=== PATIENT | male | born 1970 | race Two or more races ===

== ENCOUNTER 2021-04-11 10:59 | Outpatient (REF) | payer OTHER, SELFPAY ==
[2021-04-11 13:40] LABS: MANUAL DIFF FLAG NO
[2021-04-11 13:50] LABS: Basophils Absolute Auto 0.1 X10*3/uL (0.0-0.2); Basophils Percent Auto 0.7 % (0-2); Eosinophils Absolute Auto 0.1 X10*3/uL (0.0-0.4); Eosinophils Percent Auto 1.1 % (0-4); Hematocrit 43.6 % (42-52); Hemoglobin 14.8 g/dl (14.0-18.0); Imm Gran Abs Auto 0.04 X10*3/uL (0.00-0.03); Imm Gran Pct Auto 0.5 % (0.0-0.4); Lymphocytes Absolute Auto 1.9 X10*3/uL (1.2-4.9); Lymphocytes Percent Auto 26.2 % (20-40); Mean Corpuscular HGB Conc 33.9 g/dl (31.0-36.0); Mean Corpuscular Hemoglobin 30.1 pg (27.0-33.0); Mean Corpuscular Volume 88.6 fL (80-98); Mean Platelet Volume 11.1 fL (9.4-12.4); Monocytes Absolute Auto 0.6 X10*3/uL (0.1-1.2); Monocytes Percent Auto 8.4 % (2-11); Neutrophils Absolute Auto 4.6 X10*3/uL (2.0-8.3); Neutrophils Percent Auto 63.1 % (45-73); Platelet Count 257 X10*3/uL (160-400); Red Blood Count 4.92 X10*6/uL (4.60-5.80); Red Cell Distribution Width 13.1 % (11.0-16.0); White Blood Count 7.3 X10*3/uL (4.8-10.8)
[2021-04-11 14:02] LABS: Alanine Aminotransferase 32 U/L (0-40); Albumin Level 4.5 g/dL (3.5-5.0); Alkaline Phosphatase 65 U/L (39-117); Anion Gap 12 (12-20); Aspartate Amino Transferase 22 U/L (5-37); Bilirubin Total 0.2 mg/dL (0.0-1.0); Blood Urea Nitrogen 13 mg/dL (9-16); Calcium 9.7 mg/dL (8.4-10.2); Carbon Dioxide 26 mmol/L (22-29); Chloride 107 mmol/L (96-108); Cholesterol 229 mg/dL; Estimated Glomerular Filt Rate > 60; Glucose Fasting 100 mg/dL (60-99); HDL Cholesterol 34 mg/dL; LDL Cholesterol Calculated 148 mg/dl; Sodium 140 mmol/L (135-145); Total Protein 7.4 g/dL (6.5-8.0); Triglycerides 238 mg/dL
== END 2021-04-11 11:00 | disposition home or self-care (01) ==
LOC: HO.10HDL 10:59
PROVIDERS: Visit Provider Internal Medicine
DX: Z00.00 Encounter for general adult medical examination without abnormal findings (principal); I10 Essential (primary) hypertension; M48.061 Spinal stenosis, lumbar region without neurogenic claudication; Z72.0 Tobacco use
CPT/HCPCS: 36415; 80053; 80061; 85025

== ENCOUNTER 2021-10-13 12:45 | Outpatient (REF) | payer BC, SELFPAY ==
[2021-10-13 13:47] LABS: Alanine Aminotransferase 32 U/L (0-40); Albumin Level 4.2 g/dL (3.5-5.0); Alkaline Phosphatase 57 U/L (39-117); Anion Gap 11 (12-20); Aspartate Amino Transferase 22 U/L (5-37); Bilirubin Total 0.4 mg/dL (0.0-1.0); Blood Urea Nitrogen 14 mg/dL (9-16); Calcium 9.8 mg/dL (8.4-10.2); Carbon Dioxide 27 mmol/L (22-29); Chloride 105 mmol/L (96-108); Cholesterol 196 mg/dL; Estimated Glomerular Filt Rate > 60; Glucose Random 118 mg/dL (60-115); HDL Cholesterol 27 mg/dL; Potassium 4.5 mmol/L (3.3-5.1); Sodium 138 mmol/L (135-145); Total Protein 7.2 g/dL (6.5-8.0); Triglycerides 470 mg/dL
== END 2021-10-13 12:46 | disposition home or self-care (01) ==
LOC: HO.LAB 12:45
PROVIDERS: PCP Internal Medicine; Visit Provider Internal Medicine
DX: E78.2 Mixed hyperlipidemia (principal); I10 Essential (primary) hypertension; M54.12 Radiculopathy, cervical region; Z72.0 Tobacco use
CPT/HCPCS: 36415; 80053; 80061

== ENCOUNTER 2022-11-14 11:00 | Day surgery (SDC) | payer BC, SELFPAY ==
--- NOTE | 2022-11-13 12:34 | P.CONAN_ITS ---
Documented by User: Danna Hernandez NP 11/13/22 12:37 HPI - Anesthesia Eval Consult details Narrative: 52yo M for Colonoscopy [facility] Past Medical History Medical History (Updated 11/13/22 @ 12:36 by Danna Hernandez NP) Cervical disc disease Hypertriglyceridemia Osteoarthritis Surgical History Surgical History (Updated 11/13/22 @ 12:36 by Danna Hernandez NP) H/O umbilical hernia repair (~2015) S/P cervical spinal fusion (~2021) S/P right knee arthroscopy (~2022) Social History Social History Patient Tobacco Use Status: Former Tobacco user Are you DNR?: No Advance Directives: No Advance Directives Information Provided: Yes Nutrition Risks: No Nutritional Risk Meds Allergies Allergy/AdvReac Type Severity Reaction Status Date / Time acetaminophen [From Percocet] Allergy Unknown Unknown Verified 11/13/22 12:36 oxycodone [From Percocet] Allergy Unknown Unknown Verified 11/13/22 12:36 Home Medications Medication Instructions Recorded Confirmed Last Taken Type fenofibrate nanocrystallized 145 145 mg PO DAILY 11/13/22 11/13/22 Unknown History mg tablet multivitamin 11/13/22 Unknown History rosuvastatin 20 mg tablet 20 mg PO BEDTIME 11/13/22 11/13/22 Unknown History Exam Exam Date and Time: November 13, 2022 1234 Assessment and Plan Assessment Anesthesia Assessment: Chart Reviewed Documented by User: Domenico Garcia MD 11/14/22 12:23 [facility] Past Medical History Medical History (Updated 11/13/22 @ 12:36 by Danna Hernandez NP) Cervical disc disease Hypertriglyceridemia Osteoarthritis Family History Family history of problems with anesthesia: No Surgical History Surgical History (Updated 11/13/22 @ 12:36 by Danna Hernandez NP) H/O umbilical hernia repair (~2015) S/P cervical spinal fusion (~2021) S/P right knee arthroscopy (~2022) History of Problems with Anesthesia: No Social History Social History Patient Tobacco Use Status: Former Tobacco user Are you DNR?: No Advance Directives: No Advance Directives Information Provided: Yes Nutrition Risks: No Nutritional Risk Meds Allergies Allergy/AdvReac Type Severity Reaction Status Date / Time acetaminophen [From Percocet] Allergy Unknown Unknown Verified 11/13/22 12:36 oxycodone [From Percocet] Allergy Unknown Unknown Verified 11/13/22 12:36 Home Medications Medication Instructions Recorded Confirmed Last Taken Type fenofibrate nanocrystallized 145 145 mg PO DAILY 11/13/22 11/13/22 Unknown History mg tablet multivitamin 11/13/22 Unknown History rosuvastatin 20 mg tablet 20 mg PO BEDTIME 11/13/22 11/13/22 Unknown History Exam Airway Mallampati Class: II TM Dist: >3cm Neck ROM: Full Heart: rrr Lungs: cta Assessment and Plan Assessment Anesthesia Assessment: Anesthesia Plan Discussed Final Anesthetic Review Family History of Problems with Anesthesia: No History of Problems with Anesthesia: No NPO: Yes ASA Class: II Final Preanesthetic Review: No Changes in Pt Med Stat, Meds/Allgs Chart Reviewed, Consent Obtained/Reviewed and Anes Risks/Benef Reviewed Patient Risk: Low Procedure Risk: Low Anesthetic Plan Anesthetic Plan: MAC: and Agree w/ Assess. and Plan Disposition: Standard PACU
[2022-11-14 11:37] VITALS: BMI 31.2
[2022-11-14] MEDS: Lactated Ringers 1,000 ML 100 ML IVCONT (11:39)
[2022-11-14 11:51] VITALS: BP 153/96; PULSE 91; RESP 18; TEMP 36.7; O2SAT 97
--- NOTE | 2022-11-14 12:54 | MHC.SHP ---
Pre-Procedural Eval Section A Date of Service: 11/14/22 The patient is an INPATIENT: No Changes since office visit: No Cold of Flu in the past 2 weeks, No New Medical Problems, No Changes in Medication and No Patient answered all questions The History & Physical has been completed within 30 days and I have reviewed it.: Yes Section B Chief Complaint: Hemorrhage of anus and rectum Allergies: Allergies Allergy/AdvReac Type Severity Reaction Status Date / Time acetaminophen [From Percocet] Allergy Unknown Unknown Verified 11/13/22 12:36 oxycodone [From Percocet] Allergy Unknown Unknown Verified 11/13/22 12:36 Plan I have reviewed the history and physical and performed a pertinent physical examination on my patient. No changes have occurred unless specified. Time Spent With Patient Time: Total time managing care of this patient today ____ minutes.
--- NOTE | 2022-11-14 13:33 | PM.OP ---
Brief Operative Note Date of Service: 11/14/22 Pre-op diagnosis: rectal bleeding constipation Post-op diagnosis: same Surgeon: Roberto Singh Anesthesia: MAC Was an Digital Account Director used for this Procedure?: No Estimated blood loss (mL): 5 Pathology: other Condition: stable Disposition: PACU
[2022-11-14 13:36] VITALS: BP 98/52; PULSE 94; RESP 16; TEMP 36.1; O2SAT 96
[2022-11-14 13:51] VITALS: BP 120/79; PULSE 82; RESP 16; TEMP 36.1; O2SAT 99
--- NOTE | 2022-11-14 14:00 | OP_ITS ---
DATE OF SERVICE: 11/14/2022 SURGEON: Roberto Singh MD INDICATIONS: Constipation and rectal bleeding. PREOPERATIVE DIAGNOSIS: POSTOPERATIVE DIAGNOSIS: PROCEDURE PERFORMED: Colonoscopy to the terminal ileum with biopsy. ESTIMATED BLOOD LOSS: COMPLICATIONS: ANESTHESIA: Monitored anesthesia care. ASSISTANTS: SPECIMENS: DESCRIPTION OF PROCEDURE: A history and physical was performed. The risks and benefits of the procedure were explained to the patient. Informed consent was obtained. The patient was placed in the left lateral decubitus position. A digital rectal exam was performed and was found to be normal. The Olympus pediatric video colonoscope was introduced in the rectum and advanced to the cecum without difficulty. The cecum was identified by transillumination, palpation, and identification of ileocecal valve. Examination was performed. The scope was removed. He tolerated the procedure well and was returned to the recovery area in stable condition. FINDINGS: The terminal ileum was examined and appeared normal. The visualized colonic mucosa was normal. The quality of the prep was good. The polyp in the cecum measuring less than 5 mm was removed with a biopsy forceps. There was some mild nonspecific erythema in the rectum, possibly related to the prep. Biopsies were obtained to rule out proctitis. Retroflexed examination showed some small internal hemorrhoids. IMPRESSION: Colon polyp. RECOMMENDATION: Follow up the biopsy results. MD STEPHANIE Price/LILLIANA / [phone]
== END 2022-11-14 15:07 | disposition home or self-care (01) ==
PROVIDERS: PCP Internal Medicine; Visit Provider Internal Medicine Gastroenterology
PROC: 0DJD8ZZ Inspection of Lower Intestinal Tract, Via Natural or Artificial Opening Endoscopic (ICD-10-PCS; CPT 45378; principal; 2022-11-14 12:20)
DX: K62.5 Hemorrhage of anus and rectum (principal); K59.00 Constipation, unspecified; K63.5 Polyp of colon; K64.8 Other hemorrhoids; E78.1 Pure hyperglyceridemia; M17.11 Unilateral primary osteoarthritis, right knee; M54.12 Radiculopathy, cervical region; Z79.899 Other long term (current) drug therapy; Z88.8 Allergy status to other drugs, medicaments and biological substances; Z98.890 Other specified postprocedural states; Z87.891 Personal history of nicotine dependence
CPT/HCPCS: 45380; 88305

== ENCOUNTER 2023-02-14 07:14 | Outpatient (REF) | payer BC, SELFPAY ==
[2023-02-14 07:25] LABS: MANUAL DIFF FLAG NO
[2023-02-14 08:22] LABS: Basophils Percent Auto 0.4 % (0-2); Eosinophils Absolute Auto 0.1 X10*3/uL (0.0-0.4); Eosinophils Percent Auto 1.2 % (0-4); Hematocrit 42.4 % (42.0-52.0); Hemoglobin 13.8 g/dl (14.0-18.0); Imm Gran Abs Auto 0.02 X10*3/uL (0.00-0.03); Imm Gran Pct Auto 0.3 % (0.0-0.4); Lymphocytes Absolute Auto 2.4 X10*3/uL (1.2-4.9); Lymphocytes Percent Auto 32.7 % (20-40); Mean Corpuscular HGB Conc 32.5 g/dl (31.0-36.0); Mean Corpuscular Hemoglobin 29.2 pg (27.0-33.0); Mean Corpuscular Volume 89.6 fL (80.0-98.0); Mean Platelet Volume 11.1 fL (9.4-12.4); Monocytes Absolute Auto 0.6 X10*3/uL (0.1-1.2); Neutrophils Absolute Auto 4.3 x10*3/uL (2.0-8.3); Neutrophils Percent Auto 57.4 % (45-73); Platelet Count 294 X10*3/uL (160-400); Red Blood Count 4.73 X10*6/uL (4.60-5.80); Red Cell Distribution Width 12.5 % (11.0-16.0); White Blood Count 7.4 X10*3/uL (4.8-10.8)
[2023-02-14 09:03] LABS: Alanine Aminotransferase 18 U/L (0-40); Albumin Level 4.5 g/dL (3.5-5.0); Alkaline Phosphatase 36 U/L (39-117); Anion Gap 10 (12-20); Aspartate Amino Transferase 17 U/L (5-37); Bilirubin Total 0.4 mg/dL (0.0-1.0); Blood Urea Nitrogen 24 mg/dL (9-16); Carbon Dioxide 29 mmol/L (22-29); Chloride 107 mmol/L (96-108); Cholesterol 126 mg/dL (<200); Estimated Glomerular Filt Rate 52; Glucose Random 87 mg/dL (60-115); HDL Cholesterol 42 mg/dL (>40); LDL Cholesterol Calculated 72 mg/dL (<100); Potassium 4.1 mmol/L (3.3-5.1); Sodium 142 mmol/L (135-145); Total Protein 7.8 g/dL (6.5-8.0); Triglycerides 63 mg/dL (<150)
[2023-02-14 09:20] LABS: Prostate Specific Antigen 0.58 ng/mL (<0.05-4.0)
[2023-02-14 09:21] LABS: Thyroid Stimulating Hormone 1.34 uIU/mL (0.32-4.0)
== END 2023-02-14 07:15 | disposition home or self-care (01) ==
LOC: HO.LAB 07:14
PROVIDERS: PCP Internal Medicine; Visit Provider Internal Medicine
DX: Z12.5 Encounter for screening for malignant neoplasm of prostate (principal); E78.2 Mixed hyperlipidemia; R73.01 Impaired fasting glucose; F17.201 Nicotine dependence, unspecified, in remission
CPT/HCPCS: 36415; 80053; 80061; 84153; 84443; 85025

== ENCOUNTER 2023-05-21 10:45 | Outpatient (AMB) | payer BC, SELFPAY ==
--- NOTE | 2023-05-21 10:53 | MHC.OFFVIS ---
Intake Vital Signs 05/21/23 10:57 Height 6 ft Weight 196 lb 3.382 oz BMI 26.6 BP 112/78 Blood Pressure Location Lt brachial Position Sitting Pulse 82 Intake Visit Reasons: NPV/Chest Pain/Adlakha Intake Note: NPV w/ EKG Watch Caser Required: No Accompanied by: Self / Same As Patient Allergies acetaminophen [From Percocet] Allergy (Unknown, Verified 05/21/23 11:01) Unknown oxycodone [From Percocet] Allergy (Unknown, Verified 05/21/23 11:01) Unknown Medication List - Last Reconciled 05/21/23 by Fadi Erickson MD [multivitamin ] rosuvastatin 20 mg PO BEDTIME terbinafine HCl 250 mg PO DAILY HPI HPI Comments History of Present Illness Details Abhi is here for consultation regarding chest pain. No known cardiac issues. No history of any coronary artery disease or myocardial infarction or cardiomyopathy. He states that he randomly gets chest pain on the left side. This can happen any time. Not specifically exertional but on occasions, it has also happened after doing pushups extra. However, not after walking. He does not do much of stairs due to musculoskeletal issues. It seems he was seen at the ER at [facility] but troponin was unremarkable. Otherwise, history of smoking but not in the last few months. Also, he states his blood pressure was high when he was smoking but after he stopped smoking, blood pressure came back to normal. One of his cousins had heart attack at age of 50. Other family members on father's side have had cardiac issues. Hence he is concerned. [facility] Medical History (Updated 05/21/23 @ 11:11 by Fadi Erickson MD) Osteoarthritis Cervical disc disease Hypertriglyceridemia Surgical History S/P right knee arthroscopy (~2022) S/P cervical spinal fusion (~2021) H/O umbilical hernia repair (~2015) Family History (Updated 05/21/23 @ 11:03 by Reva Veronica) Father No problems noted. Mother No problems noted. Patient Tobacco Use Status: Former Tobacco user Review of Systems Const Denies weakness ENT Denies dizziness Card Denies chest pain, Denies chest pain with activity, Denies syncope, Denies rapid heart rate, Denies pedal edema, Denies edema, Denies leg edema, Denies lightheadedness, Denies palpitations, Denies dyspnea, Denies dyspnea on exertion and Denies orthopnea Resp Denies cough, Denies dyspnea and Denies dyspnea on exertion GI Denies hematochezia and Denies change in stool character Musc Denies abnormal gait, Denies muscle cramps, Denies muscle weakness, Denies numbness, Denies radiating pain into limb and Denies tingling Neuro Denies abnormal gait, Denies dizziness, Denies syncope, Denies numbness, Denies tingling and Denies weakness Endo Denies palpitations Physical Exam Vital Signs: Last Vital Signs Pulse 82 05/21/23 10:57 BP 112/78 05/21/23 10:57 BMI result Body Mass Index 26.6 Const General: comfortable and no acute distress Orientation/consciousness: patient oriented x3 HEENT Other: Unremarkable Head: Yes normal to inspection Neck Neck: Yes normal visual inspection Chest Chest palpation & inspection: normal inspection of the chest Resp Auscultation: clear to auscultation bilaterally Cardio Palpation: normal PMI Heart sounds: S1 normal heart sound present, S2 normal heart sound present, no gallops, no murmurs and no rubs GI Palpation (GI): Soft to palpation Back/Spine/Pelvis Other: unremarkable Skin General skin exam: no rashes or lesions noted Neuro General: patient oriented x3 Extrem General: Yes normal to inspection Psych Mental Status: mental status grossly normal Office Procedures EKG Details: EKG with sinus rhythm at 82/Min; no significant ST-T changes and otherwise unremarkable. [place] [id number], Complete Assessment & Plan Assessment & Plan (1) Precordial chest pain: Code(s): R07.2 - Precordial pain Plan Chest pain with prior smoking history, chronic kidney disease. Will proceed with further workup for ischemic heart disease with echocardiogram and stress test. Further plan based on findings. Orders: Orders CA echo transthoracic complete Today I25.10 - Atherosclerotic heart disease of [place] coronary artery without angina pectoris, R07.2 - Precordial pain CA echo stress exercise Today R07.2 - Precordial pain Coding Level of Care Code New Pt Level 4 (93718) Diagnoses Precordial chest pain R07.2 CPT Codes EKG - CPT: 39852-[id number], Complete ([id number])
[2023-05-21 10:57] VITALS: BP 112/78; PULSE 82; BMI 26.6
== END 2023-05-21 11:20 | disposition home or self-care (01) ==
PROVIDERS: PCP Internal Medicine; Visit Provider Internal Medicine
DX: R07.2 Precordial pain (principal)
CPT/HCPCS: 93010; 99204

== ENCOUNTER → 2023-05-21 10:45 | Outpatient (BNVA) | payer BC, SELFPAY | PROVIDERS: PCP Internal Medicine; Visit Provider Internal Medicine | DX: R07.2 Precordial pain (principal) | CPT/HCPCS: 93005 ==

== ENCOUNTER → 2023-06-20 13:49 | Outpatient (REF) | payer BC, SELFPAY ==
--- NOTE | 2023-06-20 13:57 | CA_ITS ---
Transthoracic Echocardiogram Patient (Last, First, Middle): Abhi Dickinson, Gender: Male Date of : 1970 Age: 53 Procedure Date: 06/20/2023 Procedure Type: Transthoracic Echocardiogram Location: OP Height: 182.88 cm Weight: 88.91 kg BSA: 2.11 m2 Heart Rate: 79 bpm BP: 112 / 78 mmHg Commercial Teller: SB Referring MD: Fadi Erickson MD Symptoms: I25.10 - Atherosclerotic heart disease of [place] coronary artery without... Study Quality: Adequate w contrast ECG Rhythm: Sinus Conclusions: - The left ventricular systolic function is normal. The calculated ejection fraction is 60% by biplane method. - No obvious valvular pathology seen on this study. Findings Procedure Information Contrast agent, definity, is being given per protocol without apparent complications. Left Ventricle Normal left ventricular cavity size. There is normal left ventricular wall thickness. The left ventricular systolic function is normal. The calculated ejection fraction is 60% by biplane method. There is no evidence of regional wall motion abnormalities. Diastolic function is normal for age. Right Ventricle Mildly increased right ventricular cavity size. There is normal right ventricular systolic function. Atria Both atria are normal in size. Aortic Valve There is a normal trileaflet aortic valve. There is no aortic valve stenosis. There is no aortic valve regurgitation. Mitral Valve The mitral valve appears normal. There is no mitral valve regurgitation. There is no mitral valve stenosis. Pulmonic Valve The pulmonic valve is likely normal. Tricuspid Valve Normal tricuspid valve structure. There is trace tricuspid valve regurgitation. There is no evidence of pulmonary hypertension. Great Vessels The asc aorta is normal in size. Venous The inferior vena cava is normal in size and collapses greater than 50% with inspiration. Pericardium/Pleural There is no evidence of pericardial effusion. Prior Study Comparison No prior study available for comparison. Recommendations, Care & Conclusions No obvious valvular pathology seen on this study. Measurements 2D Linear Measurements IVSd: 0.83 0.6-0.9/0.6-1.0 cm LVIDd: 4.87 3.9-5.3/4.2-5.9 cm LVIDd Index: 2.31 2.4-3.2/2.2-3.1 cm/m2 LVIDs: 3.43 2.0-3.6 cm LVPWd: 0.66 0.7-1.1 cm LA Diam: 3.40 2.7-3.8/3.0-4.0 cm LAIDs Index: 1.61 1.5-2.3 cm/m2 LV Mass: 147.30 67-162/88-224 g LV Mass Index: 69.81 43-95/49-115 g/m2 LVOT Diam: 2.20 3.0+(-)1.3 cm 2D Systolic Function EF 4C: 52.80 >55% EF 2C: 64.30 >55% EF BiP: 59.80 >55% Mitral Valve MV Pk E: 0.71 MV PK A: 0.52 MV Decel Time: 151.00 E/A: 1.40 E'Lateral: 14.60 E'Medial: 9.46 E/E' Med: 7.50 E/E' Lat: 4.90 PHT: 44.00 MVA PHT: 5.00 Decel Limestone: 4.70 Aortic Valve AoV Pk Diony: 1.18 AoV Pk Grad: 6.00 TRUDY: 2.71 LVOT LVOT Pk Diony: 0.84 LVOT Mn Diony: 0.61 LVOT VTI: 0.18 LVOT Pk Grad: 3.00 LVOT Mn Grad: 2.00 LVOT Diam: 2.20 LVOT Area: 3.80 Diastolic Function MV Pk E: 0.71 MV Pk A: 0.52 E/A: 1.40 E'Medial: 9.46 E/E' Med: 7.50 E' Laterial: 14.60 E/E' Lat: 4.90 Right Ventricle TAPSE (mm): 19.30 TVS' Diony: 14.00 Tricuspid Valve TR Pk Diony: 2.04 TR Pk Grad: 17.00 RA Press: 3.00 RVSP: 20.00 Great Vessels Aorta Sinus of Valsalva: 3.90 2.0-3.5 cm Ao Asc: 3.20 2.1-3.4 cm Pulmonary Veins Pulm Vein S/D 1.40 Pulmonary Valve PV Pk Diony: 1.16 Peak PV Grad: 5.00 Updated in Other Vendor System with Status of Final Fadi Erickson MD electronically signed on 06/22/2023 11:27:22 AM with status of Final
== END ==
LOC: HO.CARD 13:49
PROVIDERS: PCP Internal Medicine; Visit Provider Internal Medicine
DX: R07.2 Precordial pain (principal); I25.10 Atherosclerotic heart disease of native coronary artery without angina pectoris
CPT/HCPCS: 93306; Q9957

== ENCOUNTER → 2023-06-20 13:57 | Outpatient (BNV) | payer BC, SELFPAY | PROVIDERS: PCP Internal Medicine; Visit Provider Internal Medicine | DX: I25.10 Atherosclerotic heart disease of native coronary artery without angina pectoris (principal) | CPT/HCPCS: 93306 ==

== ENCOUNTER → 2023-06-26 10:57 | Outpatient (REF) | payer BC, SELFPAY ==
--- NOTE | 2023-06-26 11:00 | CA_ITS ---
Acquisition Time: 2023-06-26 11:29:23 Total Exercise Time: 00:08:01 Test Indications: chest pain Medications: Protocol: JOSEE Max HR: 173 BPM 102% of Pred: 168 BPM Max BP: 128/080 mmHG Max Work Load: 10.1 METS Exercise stress test exercise 8 min 1 sec of Josee protocol achieving 101% MPHR, without anginal symptoms, with isolated PVCs, with normotensive response to exercise, without EKG changes Echo images obtained by tech at rest and immediately post peak exercise. Definty contrast used. Test reviewed with Dr. Fox. Referred By: Fadi Erickson Overread By: Holly Markham
== END ==
LOC: HO.CARD 10:57
PROVIDERS: PCP Internal Medicine; Visit Provider Internal Medicine
DX: R07.2 Precordial pain (principal)
CPT/HCPCS: 93350; Q9957

== ENCOUNTER → 2023-06-26 11:00 | Outpatient (BNV) | payer BC, SELFPAY | PROVIDERS: PCP Internal Medicine; Visit Provider Nurse Practitioner | DX: R07.2 Precordial pain (principal) | CPT/HCPCS: 93016; 93018; 93350; 93352 ==

== ENCOUNTER 2023-08-22 07:18 | Outpatient (REF) | payer BC, SELFPAY ==
[2023-08-22 08:02] LABS: Alanine Aminotransferase 23 U/L (0-40); Albumin Level 4.2 g/dL (3.5-5.0); Alkaline Phosphatase 53 U/L (39-117); Anion Gap 11 (12-20); Aspartate Amino Transferase 22 U/L (5-37); Bilirubin Total 0.5 mg/dL (0.0-1.0); Blood Urea Nitrogen 13 mg/dL (9-16); Calcium 9.8 mg/dL (8.4-10.2); Carbon Dioxide 28 mmol/L (22-29); Chloride 108 mmol/L (96-108); Cholesterol 120 mg/dL (<200); Estimated Glomerular Filt Rate > 60; Glucose Random 104 mg/dL (60-115); HDL Cholesterol 43 mg/dL (>40); LDL Cholesterol Calculated 62 mg/dL (<100); Potassium 4.7 mmol/L (3.3-5.1); Sodium 142 mmol/L (135-145); Total Protein 7.1 g/dL (6.5-8.0); Triglycerides 78 mg/dL (<150)
== END 2023-08-22 07:19 | disposition home or self-care (01) ==
LOC: HO.LAB 07:18
PROVIDERS: PCP Internal Medicine; Visit Provider Internal Medicine
DX: Z00.00 Encounter for general adult medical examination without abnormal findings (principal); B35.1 Tinea unguium; E78.2 Mixed hyperlipidemia; I10 Essential (primary) hypertension; F17.201 Nicotine dependence, unspecified, in remission
CPT/HCPCS: 36415; 80053; 80061

== ENCOUNTER 2023-11-30 10:10 | Outpatient (REF) | payer BC, SELFPAY ==
--- NOTE | ~2023-11-30 | CT_ITS ---
EXAMINATION: CT LOW-DOSE SCREENING CHEST WITHOUT CONTRAST CLINICAL INFORMATION: Personal history of nicotine dependence. The patient has a 25 pack-year history of smoking, having quit 1 year ago. COMPARISON: None available. TECHNIQUE: Multidetector volumetric CT imaging of the chest is performed on a Siemens SOMATOM Definition scanner without contrast using low dose technique. Additional 2D coronal and sagittal reformatted images and axial 3D maximum intensity projection (MIP) images are generated on the CT workstation. This CT examination was performed using dose optimization techniques as appropriate, variously including the following: *Automated exposure control *Adjustment of mA and/or kV according to patient size (this includes techniques or standardized protocols for targeted exams where dose is matched to indication/reason for exam; i.e. extremities or head) *Use of iterative reconstruction technique TOTAL EXAM DLP: 57 mGy-cm. CTDIvol: 1.78 mGy. FINDINGS: PULMONARY NODULES: No suspicious pulmonary nodules. LUNGS: Lungs bilaterally symmetrically expanded. There is mild emphysema and mild bronchial thickening without bronchiectasis. Some minimal scarring present at the right lung base. No focal lung nodule or mass. No effusion or pneumothorax. Central airways patent. MEDIASTINUM: No mediastinal, hilar or axillary adenopathy or free fluid collection. CORONARY ARTERY CALCIFICATION: None visualized on this study. THYROID GLAND: Unremarkable to the extent seen. CARDIOVASCULAR STRUCTURES: Aortic and heart size normal. No pericardial effusion. There is an aberrant right subclavian artery. CHEST WALL/AXILLA: Unremarkable. UPPER ABDOMEN: Included portions of the solid organs in the upper abdomen unremarkable on noncontrast imaging. OSSEOUS STRUCTURES: No suspicious focal findings. CT/CT lung screening IMPRESSION: 1. No evidence of pulmonary malignancy. 2. Mild emphysema and bronchial thickening. Lung-RADS Category Category: 1. No nodules or definitely benign nodules. Probability of malignancy less than 1%. Incidental findings (s category): No incidental findings. RECOMMENDATION: Continued routine annual low-dose CT lung screening in 1 year is recommended. An order for CT CHEST LOW DOSE CANCER SCREENING ([id number]) can be placed.
== END 2023-11-30 10:11 | disposition home or self-care (01) ==
LOC: HO.CT 10:10
PROVIDERS: PCP Internal Medicine; Visit Provider Physician Assistant Medical
DX: Z12.2 Encounter for screening for malignant neoplasm of respiratory organs (principal); Z87.891 Personal history of nicotine dependence
CPT/HCPCS: 71271

== ENCOUNTER 2023-11-30 10:14 | Outpatient (AMB) | payer BC, SELFPAY ==
--- NOTE | 2023-11-30 07:47 | A.OFFVIS_ITS ---
Intake Visit Reasons: Former Smoker Allergies acetaminophen [From Percocet] Allergy (Unknown, Verified 05/21/23 11:01) Unknown oxycodone [From Percocet] Allergy (Unknown, Verified 05/21/23 11:01) Unknown HPI HPI Former Smoker: Details: Initial visit for this 53yo former smoker with a 20PYH. Patient started smoking at age 17 for 35 years at 1/2-3/4ppd. He quit around 07/2022 . Denies marijuana use. Notes social second hand smoke exposure. Denies exposure to chemicals or substances like asbestos. . Denies known family history of lung cancer. Denies personal history of cancers. Denies chest CT in last year. . Denies recent travel outside the [place]. Denies recent respiratory illness or recent hospitalization for respiratory issues. Reports testing positive for COVID. Admits receiving COVID Vaccine. x1. . Has had chest wall pain - worked up with negative cardiac work up. Denies fever, chills, new/worsening cough, hemoptysis, hoarseness or dysphagia. Denies significant dyspnea or unintentional weight loss. Patient Lung Cancer Screening Questionnaire reviewed with patient by provider. . Shared Decision Making Completed. Patient meets criteria. Discussed in detail with patient, the risk vs benefit of LDCT screening. Patient consents to proceed with scan. Discussed and encouraged conrtinued smoking cessation. COUNT INCLUDES THE [facility] Medical History (Updated 11/30/23 @ 10:34 by Ann Gay PA-C) Personal history of nicotine dependence Osteoarthritis Cervical disc disease Hypertriglyceridemia Surgical History (Updated 11/30/23 @ 10:25 by Ann Gay PA-C) History of colonoscopy History of arthroscopy of right knee (~2022) History of umbilical hernia repair (~2015) History of fusion of cervical spine (~2021) Family History (Updated 05/21/23 @ 11:03 by Reva Veronica) Father No problems noted. Mother No problems noted. Social History (Updated 11/30/23 @ 10:34 by Ann Gay PA-C) Patient Tobacco Use Status: Former Tobacco user Years Smoked: (onset 17yo, 1/2-3/4ppd x 35yrs, 20pyh - quit 07/2022) Assessment & Plan Assessment & Plan (1) Personal history of nicotine dependence: Comment: (onset 17yo, 1/2-3/4ppd x 35yrs, 20pyh - quit 07/2022) Code(s): Z87.891 - Personal history of nicotine dependence Category: Medical Plan: - SDM visit completed today in office. - Patient meets criteria for LDCT for lung cancer screening purposes and is asymptomatic. - Smoking cessation counseling offered. Patients can always call [phone]. - Will arrange for a LDCT scan of the chest for screening purposes at [facility]. - Risks, benefits, and alternatives were discussed in detail and the patient agrees to proceed. - Risks discussed include but are not limited to: radiation exposure, anxiety during testing and while awaiting results, false negatives, false positives and possibility of additional intervention such as further imaging or surgical procedures for benign disease. - Benefits are obviously detection of lung cancer at an early stage which can lead to improved outcomes. - Discussed the importance of screening program compliance with adherence to yearly LDCT scan as scheduled - or sooner interval scans for personalized screening regimen. - Discussed follow up plan. Our office will send a letter discussing results and if needed set up phone call and office visit based on CT findings. - Patient educated on results categorization and the management decisions for suspicious findings potentially found on the screening LDCT scan. Any patient with a Lung RADS score of 3 or 4 will be reviewed by a multidisciplinary team at [facility] to form a plan of action in regards to scan findings. - If further work up is warranted for a suspicious lung finding this will be followed by the Lung Cancer Screening program in conjunction with the Thoracic Surgery Department at [facility]. - A copy of the office note and LDCT will be sent to the patient's PCP - as well as documentation on any associated further plans of care. - Incidental findings on LDCT are the PCP's responsibility. These findings are indicated with an S finding on the LDCT Assessment. A note discussing the findings will be sent to the PCP who is then responsible for further management. - All questions answered.? Coding Level of Care Code Lung Cancer Screening G0296 Diagnoses Personal history of nicotine dependence Z87.891
== END 2023-11-30 10:48 | disposition home or self-care (01) ==
PROVIDERS: PCP Internal Medicine; Referring Provider Internal Medicine; Visit Provider Physician Assistant Medical
DX: Z87.891 Personal history of nicotine dependence (principal)
CPT/HCPCS: G0296

== ENCOUNTER 2024-02-01 08:04 | Outpatient (REF) | payer BC, SELFPAY ==
[2024-02-01 08:11] LABS: MANUAL DIFF FLAG NO
[2024-02-01 08:42] LABS: Basophils Percent Auto 0.6 % (0-2); Eosinophils Absolute Auto 0.1 X10*3/uL (0.0-0.4); Eosinophils Percent Auto 1.6 % (0-4); Hemoglobin 14.4 g/dl (14.0-18.0); Imm Gran Abs Auto 0.01 X10*3/uL (0.00-0.03); Imm Gran Pct Auto 0.2 % (0.0-0.4); Lymphocytes Absolute Auto 1.6 X10*3/uL (1.2-4.9); Lymphocytes Percent Auto 33.3 % (20-40); Mean Corpuscular HGB Conc 34.3 g/dl (31.0-36.0); Mean Corpuscular Hemoglobin 30.6 pg (27.0-33.0); Mean Corpuscular Volume 89.2 fL (80.0-98.0); Mean Platelet Volume 10.6 fL (9.4-12.4); Monocytes Absolute Auto 0.5 X10*3/uL (0.1-1.2); Monocytes Percent Auto 9.6 % (2-11); Neutrophils Absolute Auto 2.7 x10*3/uL (2.0-8.3); Neutrophils Percent Auto 54.7 % (45-73); Platelet Count 222 X10*3/uL (160-400); Red Blood Count 4.71 X10*6/uL (4.60-5.80); Red Cell Distribution Width 12.8 % (11.0-16.0); White Blood Count 4.9 X10*3/uL (4.8-10.8)
[2024-02-01 09:19] LABS: Alanine Aminotransferase 27 U/L (0-40); Albumin Level 4.2 g/dL (3.5-5.0); Alkaline Phosphatase 48 U/L (39-117); Anion Gap 9 (12-20); Aspartate Amino Transferase 24 U/L (5-37); Bilirubin Total 0.3 mg/dL (0.0-1.0); Blood Urea Nitrogen 19 mg/dL (9-16); Calcium 9.5 mg/dL (8.4-10.2); Carbon Dioxide 30 mmol/L (22-29); Chloride 109 mmol/L (96-108); Cholesterol 170 mg/dL (<200); Estimated Glomerular Filt Rate > 60; Glucose Random 98 mg/dL (60-115); HDL Cholesterol 49 mg/dL (>40); LDL Cholesterol Calculated 102 mg/dL (<100); Potassium 4.5 mmol/L (3.3-5.1); Sodium 143 mmol/L (135-145); Triglycerides 98 mg/dL (<150)
== END 2024-02-01 08:05 | disposition home or self-care (01) ==
LOC: HO.LAB 08:04
PROVIDERS: PCP Internal Medicine; Visit Provider Internal Medicine
DX: E78.2 Mixed hyperlipidemia (principal); F17.291 Nicotine dependence, other tobacco product, in remission; F33.41 Major depressive disorder, recurrent, in partial remission; N40.0 Benign prostatic hyperplasia without lower urinary tract symptoms; R07.89 Other chest pain; Z12.5 Encounter for screening for malignant neoplasm of prostate
CPT/HCPCS: 36415; 80053; 80061; 84153; 85025

== ENCOUNTER 2024-11-12 09:28 | Outpatient (REF) | payer OTHER, BC, SELFPAY ==
--- NOTE | ~2024-11-12 | XR_ITS ---
EXAMINATION: XR KNEE 3 VIEWS RIGHT HISTORY: M25.561 - Pain in right knee COMPARISON: There are no prior studies available for comparison. FINDINGS: Three views of the right knee are submitted. Osseous mineralization is normal. There is no fracture or dislocation. The joint spaces are preserved. The soft tissues are unremarkable. There is no joint effusion. XR/XR knee RT 3V IMPRESSION: Unremarkable examination of the right knee. Electronically signed by: Ronald Villegas MD 11/12/2024 03:12 PM EDT
--- OUTSIDE RECORDS SUMMARY | 2024-11-13 09:44 | XMS_ITS | Patient Health Record ---
Author Organization [facility] Address [address] [place] [address] Care Team Providers Care Meter And Regulator Shop Supervisor Name Role Phone Doranereida Rachel Primary Care [...] Problem Status W/U Status Risk Notes Problem [id number] Rectal bleeding (K62.5) Active confirmed Problem 44525041 Constipation, unspecified constipation type (K59.00) Active confirmed Plan Of Treatment Future Test Test Name Order Date COLONOSCOPY 10/26/2022 Insurance Providers Payer Name Payer Address Payer Phone Subscriber Number Group Number Insured Name Patient Relationship to Insured Coverage Start Date Coverage End Date [facility] [address] [place] [address] [phone] [id number] BO BIGGS Self - patient is the insured Medical (General) History Medical History History ICD Code Hypertriglyceridemia Radiculopathy/disc disease, cervical Osteoarthritis Surgical History Surgery Date(Month/Year) Umbilical hernia repair [id number] C5-6 neck fusion 2021 arthoscopy right knee 2022
--- OUTSIDE RECORDS SUMMARY | 2024-11-13 09:44 | XMS_ITS | Clinical Summary ---
Author Organization [facility] ity Address [address] [place] [address] Care Team Providers Care Compensation Manager Name Role Phone Rachel Stephens MD Primary Care Provider [phone] Surgical History Surgery Date Site/Laterality Comments OTHER SURGICAL HISTORY PROCEDURE: DENIES PREVIOUS SURGERY HERNIA REPAIR 2016 PROCEDURE: HISTORICAL HERNIA REPAIR/UMB OTHER SURGICAL HISTORY 12/30/2021 PROCEDURE: [place] ARTHRD ANT INTERBODY MIN DSC CRV BELOW C2; COMMENT: C5-6,6-7 ACDF, Dr. Montez Medical History Medical History Date Comments Hypertriglyceridemia 08/05/2014 DX:Hypertri glyceridemia Family History Medical History Relation Name Comments Hypertension Father [place] 50s Diabetes Mother Heart attack Other 1 [...] age to complete this topic Care Teams Compensation Manager Relationship Specialty Start Date End Date Rachel Stephens MD [address] [facility] [address] [place], [place] PCP - General Internal Medicine 09/05/21
== END 2024-11-12 09:29 | disposition home or self-care (01) ==
LOC: HO.HOSX 09:28
PROVIDERS: Visit Provider Orthopaedic Surgery
DX: M25.561 Pain in right knee (principal)
CPT/HCPCS: 73562; 99202

== ENCOUNTER 2024-11-12 14:45 | Outpatient (AMB) | payer OTHER, SELFPAY ==
--- OUTSIDE RECORDS SUMMARY | 2024-11-12 14:53 | XMS_ITS | Clinical Summary ---
Author Organization [employer] [facility] ity Address [address] [place] [address] Care Team Providers Care Joiner Helper Name Role Phone Rachel Setphens MD Primary Care Provider [phone] Surgical History Surgery Date Site/Laterality Comments OTHER SURGICAL HISTORY PROCEDURE: DENIES PREVIOUS SURGERY HERNIA REPAIR 2016 PROCEDURE: HISTORICAL HERNIA REPAIR/UMB OTHER SURGICAL HISTORY 12/30/2021 PROCEDURE: [place] ARTHRD ANT INTERBODY MIN DSC CRV BELOW C2; COMMENT: C5-6,6-7 ACDF, Dr. Montez Medical History Medical History Date Comments Hypertriglyceridemia 08/05/2014 DX:Hypertri glyceridemia Family History Medical History Relation Name Comments Hypertension Father [place] 50s Diabetes Mother Heart attack Other 1 cousin age 50 Relation Name Status Comments Father Alive [place] age 50's Mother Alive Other 1 Other 2 Social History Tobacco Use Types Packs/Day Years Used Date Smoking Tobacco: Every Day Cigarettes 1 37.6 Started: 1987 Smokeless Tobacco: Never Alcohol Use Standard Drinks/Week Comments Yes 6.7 (1 standard drink = 0.6 oz p ure alcohol) Sex and Gender Information Value Date Recorded Sex Assigned at Not on file Legal Sex Male 5:20 AM EST Gender Identity Not on file Sexual Orientation Not on file Obstetrics History Last Filed Vital Signs Vital Sign Reading Time Taken Comments Blood Pressure - - Pulse - - Temperature - - Respiratory Rate - - Oxygen Saturation - - Inhaled Oxygen Concentration - - Weight 95.3 kg (210 lb) 01/20/2022 10:53 AM EDT Height 182.9 cm (6') 01/20/2022 10:53 AM EDT Body Mass Index 28.48 01/20/2022 10:53 AM EDT Plan of Treatment Health Maintenance Due Date Last Done Comments DTaP,Tdap,and Td Vaccines (1 - Tdap) 1990 Hepatitis B Vaccines (1 of 3 - 19+ 3-dose series) 1990 Pneumococcal Vaccine: 50+ Ye ars (1 of 2 - PCV) 1990 Pneumococcal Vaccine: Pediat rics (0 to 5 Years) and At-Risk Patients (6 to 64 Years) (1 of 2 - PCV) 1990 Zoster Vaccines (1 of 2) 2021 Cholesterol Screening (Lipid Panel) 05/28/2022 Colorectal Cancer Screening: Colonoscopy 05/28/2022 Depression Screening 05/28/2022 HIV Screening 05/28/2022 Hepatitis C Screening 05/28/2022 Social Influencers of Health Screening 05/28/2022 COVID-19 Vaccine ( - 2023-2 5 season) 2024 Influenza Vaccine (Season Ended) 2025 HIB Vaccines Aged Out No longer eligi ble based on patient's age to complete this topic HPV Vaccines Aged Out No longer eligi ble based on patient's age to complete this topic Hepatitis A Vaccines Aged Out No long er eligible based on patient's age to complete this topic IPV Vaccines Aged Out No longer eligi ble based on patient's age to complete this topic MMR Vaccines Aged Out No longer eligi ble based on patient's age to complete this topic Meningococcal ACWY Vaccine Aged Out N o longer eligible based on patient's age to complete this topic Meningococcal B Vaccine Aged Out No l onger eligible based on patient's age to complete this topic RSV Immunization Patients Un brian 20 months Aged Out No longer eligible b ased on patient's age to complete this topic Varicella Vaccines Aged Out No longer eligible based on patient's age to complete this topic Care Teams Joiner Helper Relationship Specialty Start Date End Date Rachel Stephens MD [address] [facility] [address] [place], [place] PCP - General Internal Medicine 09/05/21
--- OUTSIDE RECORDS SUMMARY | 2024-11-12 14:53 | XMS_ITS | Patient Health Record ---
Author Organization [facility] Address [address] [place] [address] Care Team Providers Care Principal Mechanical Engineer Name Role Phone Doranereida Rachel Primary Care Provider UnavailRoberto Rivero Jr Unavailable Allergies Allergen (clinical drug ingredient) Drug/Non Drug Allergy documented on EMR Reaction Allergy Type Onset Date Status acetaminophen / oxycodone Percocet Unknown Drug Allergy Active Reason For Referral No Information Medications Medication SIG (Take, Route, Frequency, Duration) Notes Start Date End Date Status MiraLax (colon prep) 17 GM/SCOOP mixed with Gatorade or Crystal Light Orally begin at 5:00 p.m. the day before the procedure for 1 day 10/26/2022 Active Rosuvastatin Calcium 20 MG Oral for 90 Active Multivitamin - 1 tablet Orally Once a day for 30 day(s) Active Fenofibrate 145 MG TAKE 1 TABLET BY ALBARO TH EVERY DAY Oral for 90 Active Social History Tobacco Use: Social History Observation Description Date Details (start date - stop date) Former Smoker NA - NA Tobacco Use/Smoking Question Answer Notes Patient is a former smoker How long has it been since you last smoked? 1-3 months Alcohol Screen Question Answer Notes Did you have a drink contain ing alcohol in the past year? Yes How often did you have a dri nk containing alcohol in the past year? 2 to 4 times a month (2 points) How many drinks did you have on a typical day when you were drinking in the past year? 1 or 2 drinks (0 point) How often did you have 6 or more drinks on one occasion in the past year? Never (0 point) Points 2 Interpretation Negative Problems Problem Type SNOMED Code ICD Code Onset Dates Problem Status W/U Status Risk Notes Problem 27865130 Rectal bleeding (K62.5) Active confirmed Problem 86168350 Constipation, unspecified constipation type (K59.00) Active confirmed Plan Of Treatment Future Test Test Name Order Date COLONOSCOPY 10/26/2022 Insurance Providers Payer Name Payer Address Payer Phone Subscriber Number Group Number Insured Name Patient Relationship to Insured Coverage Start Date Coverage End Date [facility] [address] [place] [address] [phone] [id number] BO BIGGS Self - patient is the insured Medical (General) History Medical History History ICD Code Hypertriglyceridemia Radiculopathy/disc disease, cervical Osteoarthritis Surgical History Surgery Date(Month/Year) Umbilical hernia repair [id number] C5-6 neck fusion 2021 arthoscopy right knee 2022
[2024-11-12 14:57] VITALS: BMI 28.1
--- NOTE | 2024-11-12 14:57 | A.OFFVIS_ITS ---
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 The patient describes his right knee pain as stabbing in nature. He did undergo right knee arthroscopic surgery at [facility] in 2022. He states that he gotten minimal relief from that procedure. He did go to physical therapy following the procedure which seemed to aggravate his pain. He has had both cortisone injections and viscosupplementation injections since his surgery. The viscosupplementation injections gave him no relief and the cortisone injection gave him only several weeks worth of relief. The patient states that at times his right knee will give out. He has taken Tylenol and diclofenac which gave him minimal relief. Allergies acetaminophen [From Percocet] Allergy (Unknown, Verified 11/12/24 15:14) Unknown oxycodone [From Percocet] Allergy (Unknown, Verified 11/12/24 15:14) Unknown Medication List - Last Reconciled 11/12/24 by Homero Moy MD [multivitamin ] rosuvastatin 20 mg PO BEDTIME terbinafine HCl 250 mg PO DAILY [facility] Medical History (Updated 11/12/24 @ 15:14 by Homero Moy MD) Personal history of nicotine dependence Osteoarthritis Cervical disc disease Hypertriglyceridemia Surgical History (Updated 11/30/23 @ 10:25 by Ann Gay PA-C) History of colonoscopy History of arthroscopy of right knee (~2022) History of umbilical hernia repair (~2015) History of fusion of cervical spine (~2021) Family History (Updated 05/21/23 @ 11:03 by Reva Veronica) Father No problems noted. Mother No problems noted. Social History (Updated 11/30/23 @ 10:34 by Ann Gay PA-C) Patient Tobacco Use Status: Former Tobacco user Years Smoked: (onset 17yo, 1/2-3/4ppd x 35yrs, 20pyh - quit 07/2022) Physical Exam Vital Signs: BMI result Body Mass Index 28.1 Const Other: Well-nourished well-developed very friendly male awake alert and oriented x3 in no acute distress Extrem Other: Bilateral lower extremity examination shows good capillary refill, no skin lesions noted, normal sensation light touch Right knee examination shows a minimal effusion, minimal crepitus with range of motion, tenderness along his medial joint line, positive Brooklynn's test, no instability Results Reviewed Results Reviewed: X-rays of the patient's right knee show mild diffuse joint space narrowing, no acute bony abnormalities Assessment & Plan Assessment & Plan (1) Tear of medial meniscus of right knee: Code(s): S83.241A - Other tear of medial meniscus, current injury, right knee, initial encounter Category: Medical Plan Mr. Dickinson presents with progressively worsening right knee pain and mechanical symptoms most likely due to a medial meniscus tear. Thus, I will send the patient for an MRI of his right knee for further evaluation. I will see him back once the MRI is completed to discuss the findings and treatment options. He will contact me prior to that time should any questions or concerns arise. Feel free to call me at any time should questions regarding his orthopedic management arise. I spent 20 minutes in reviewing the patient's records and imaging studies, seeing the patient and documenting in the medical record. Orders: Orders XR knee RT 3V Today M25.561 - Pain in right knee MR knee RT wo con Today S83.241A - Other tear of medial meniscus, current injury, right knee, initial encounter Coding Level of Care Code New Pt Level 3 (76597) Complex EM visit Add On G2211 Diagnoses Tear of medial meniscus of right knee S83.241A
== END 2024-11-12 15:13 | disposition home or self-care (01) ==
LOC: HO.HOS 14:45
PROVIDERS: PCP Internal Medicine; Visit Provider Orthopaedic Surgery
DX: S83.241A Other tear of medial meniscus, current injury, right knee, initial encounter (principal)
CPT/HCPCS: 99203

== ENCOUNTER → 2024-11-12 14:51 | Outpatient (BNV) | payer BC, SELFPAY | PROVIDERS: Visit Provider Radiology Diagnostic Radiology | DX: M25.561 Pain in right knee (principal) | CPT/HCPCS: 73562 ==

== ENCOUNTER 2024-11-14 14:27 | Outpatient (REF) | payer BC, SELFPAY ==
--- NOTE | ~2024-11-14 | US_ITS ---
EXAMINATION: US SCROTUM CLINICAL INFORMATION: Right testicular pain.. COMPARISON: None available. TECHNIQUE: A sonogram of the scrotum was performed assessing acuna-scale appearance and color Doppler flow. Spectral Doppler analysis of the arterial and venous flow were performed in the testes bilaterally. FINDINGS: RIGHT: Right testicle measures 4.1 x 1.8 x 2.8 cm, volume 10.8 mL. No solid or cystic lesion identified by the technologist. Spectral Doppler analysis of the arterial and venous flow is normal in the right testis. Right epididymal head is there is a 0.8 x 0.8 x 0.6 cm mixed isointense and slightly hyperechoic lesion without gross flow on Doppler interrogation. No free fluid in the scrotal sac. No prominence of the pampiniform plexus. Right epididymal Doppler flow is normal. LEFT: Left testicle measures 3.8 x 1.8 x 3.0 cm, volume 10.7 mL. No solid or cystic mass demonstrated by the technologist Spectral Doppler analysis of the arterial and venous flow is normal in the left testis. Left epididymal head is normal in size. No free fluid in the scrotal sac. No prominent pampiniform plexus during Valsalva maneuvers. Left epididymal Doppler flow is normal. US/US scrotum IMPRESSION: 0.8 cm solid lesion, right epididymis head. No testicular torsion. No testicular mass. No hydrocele or varicocele. Electronically signed by: Matthew Phillips MD 11/14/2024 03:07 PM EDT
== END 2024-11-14 14:28 | disposition home or self-care (01) ==
LOC: HO.HMGCX 14:27
PROVIDERS: PCP Internal Medicine; Visit Provider Internal Medicine
DX: N50.819 Testicular pain, unspecified (principal)
CPT/HCPCS: 76870

== ENCOUNTER → 2024-11-14 14:29 | Outpatient (BNV) | payer BC, SELFPAY | PROVIDERS: PCP Internal Medicine; Visit Provider Radiology Diagnostic Radiology | DX: N50.3 Cyst of epididymis (principal) | CPT/HCPCS: 76870; 93975 ==

== ENCOUNTER 2024-12-16 10:49 | Outpatient (AMB) | payer BC, SELFPAY ==
--- NOTE | 2024-12-16 11:10 | MHC.OFFVIS ---
Intake Visit Reasons: scrotal pain Intake Note: New patient presents today for initial visit for scrotal pain Urology Medication:None Blood Thinner:None Antibiotic Allergies:None Allergies acetaminophen (From Percocet) Allergy (Unknown, Verified 12/16/24 12:02) Unknown oxycodone (From Percocet) Allergy (Unknown, Verified 12/16/24 12:02) Unknown Medication List - Last Reconciled 12/16/24 by PRIMITIVO Barton [multivitamin ] rosuvastatin 20 mg PO BEDTIME HPI Comments Details: Abhi is a very pleasant 54-year-old male patient of . He has a past medical history of nicotine dependence however quit 07/2022, osteoarthritis, and cervical disc disease. He presents to the office today as a new patient for scrotal discomfort. In discussion with the patient today he reports having followed up with his PCP at which time a scrotal ultrasound was ordered and performed and recommendations were made for urology referral. These results were reviewed and communicated with the patient today. 11/16 0.8 mm solid lesion noted on the right epididymal head. No testicular torsion, testicular mass, hydrocele, and or varicoceles noted bilaterally per radiology report. Patient declining physical exam today. We did discussed further treatment options and risks and benefits of these treatment options. He discusses having previously followed up with a urologist in the past for this exact issue at which time he discusses being told everything was within normal limits. He reports pain is intermittent and feels if he adjusts his scrotum pain subsides. He denies any bothersome urinary issues. He denies urinary urgency, urinary frequency, incontinence, nocturia, hematuria, dysuria, foul smelling urine, changes to urinary stream, flank pain, fever, and or chills. He is happy with his current voiding parameters. He discusses feeling symptoms could be related to wearing boxers as previously when he had been wearing briefs he did not notice this issue. We did discussed potential causes of pain as well as further assessment however he continues to decline at this time. He denies any associated nausea or vomiting. All questions were answered. [facility] Medical History Personal history of nicotine dependence Osteoarthritis Cervical disc disease Hypertriglyceridemia Surgical History History of colonoscopy History of arthroscopy of right knee (~2022) History of umbilical hernia repair (~2015) History of fusion of cervical spine (~2021) Family History Father No problems noted. Mother No problems noted. Social History Patient Tobacco Use Status: Former Tobacco user Years Smoked: (onset 17yo, 1/2-3/4ppd x 35yrs, 20pyh - quit 07/2022) Review of Systems Const All systems reviewed & are unremarkable except as noted in HPI and below Physical Exam Const General: cooperative, healthy appearing, comfortable, no acute distress, well developed, alert and awake Orientation/consciousness: patient oriented x3 HEENT Head: Yes normal to inspection, Yes normocephalic and Yes atraumatic Ears: hearing grossly normal bilaterally Eyes General: appearance normal, both eyes and all related structures Neck Neck: Yes normal visual inspection and Yes trachea midline Chest Chest palpation & inspection: normal inspection of the chest Resp Effort & Inspection: normal respiratory effort and able to speak in complete sentences Cardio Rate: regular rate GI Inspection: Yes normal to inspection General: Yes no CVA tenderness Back/Spine/Pelvis Back: no CVA tenderness Skin General skin exam: no rashes or lesions noted Neuro General: patient oriented x3 Extrem General: Yes normal to inspection Psych Appearance: grossly normal and well kempt Mental Status: mental status grossly normal Speech and movement: Normal speech and movement present and Clear speech present Affect: normal affect Attitude: cooperative Thought process: Normal thought process present Thought content: Normal thought content present Insight: Fair insight present (Psych) Judgement: Fair judgement present (Psych) Results AMB Urinalysis, Automated UA Leukoctes 0 Nola/uL Last Edit by Nicky Gaxiola on 12/16/24 11:21 UA Nitrite Negative Last Edit by Nicky Gaxiola on 12/16/24 11:21 UA Urobilinogen 3.5 mg/dL Last Edit by Nicky Gaxiola on 12/16/24 11:21 UA Protein 0 mg/dL Last Edit by Nicky Gaxiola on 12/16/24 11:21 UA pH 6.0 Last Edit by Nicky Gaxiola on 12/16/24 11:21 UA Blood 0 Alvin/uL Last Edit by Nicky Gaxiola on 12/16/24 11:21 UA Specific [place] 1.010 Last Edit by Nicky Gaxiola on 12/16/24 11:21 UA Ketone Negative Last Edit by Nicky Gaxiola on 12/16/24 11:21 UA Bilirubin 0 mg/dL Last Edit by Nicky Gaxiola on 12/16/24 11:21 UA Glucose 0 mg/dL Last Edit by Nicky Gaxiola on 12/16/24 11:21 Results Reviewed Results Reviewed: Laboratory Last Values Urine pH (Auto) 6.0 12/16/24 11:16 Specific [place] (Auto) 1.010 12/16/24 11:16 Urine Protein (Auto) 0 mg/dL 12/16/24 11:16 Glucose (UA)(Auto) 0 mg/dL 12/16/24 11:16 Urine Ketones (Auto) Negative 12/16/24 11:16 Urine Blood (Auto) 0 Alvin/uL 12/16/24 11:16 Urine Nitrite (Auto) Negative 12/16/24 11:16 Urine Bilirubin (Auto) 0 mg/dL 12/16/24 11:16 Urine Urobilinogen (Auto) 3.5 mg/dL 12/16/24 11:16 Leukocyte Esterase (Auto) 0 Nola/uL 12/16/24 11:16 Date of Service: 11/14/24 Procedure(s): US scrotum FINDINGS: RIGHT: Right testicle measures 4.1 x 1.8 x 2.8 cm, volume 10.8 mL. No solid or cystic lesion identified by the technologist. Spectral Doppler analysis of the arterial and venous flow is normal in the right testis. Right epididymal head is there is a 0.8 x 0.8 x 0.6 cm mixed isointense and slightly hyperechoic lesion without gross flow on Doppler interrogation. No free fluid in the scrotal sac. No prominence of the pampiniform plexus. Right epididymal Doppler flow is normal. LEFT: Left testicle measures 3.8 x 1.8 x 3.0 cm, volume 10.7 mL. No solid or cystic mass demonstrated by the technologist Spectral Doppler analysis of the arterial and venous flow is normal in the left testis. Left epididymal head is normal in size. No free fluid in the scrotal sac. No prominent pampiniform plexus during Valsalva maneuvers. Left epididymal Doppler flow is normal. IMPRESSION: 0.8 cm solid lesion, right epididymis head. No testicular torsion. No testicular mass. No hydrocele or varicocele. Assessment & Plan Assessment & Plan (1) Scrotal pain: Code(s): N50.82 - Scrotal pain Category: Medical (2) Epididymal cyst: Code(s): N50.3 - Cyst of epididymis Category: Medical Plan In office urinalysis results reviewed the patient today; as noted above. Recent scrotal ultrasound results reviewed with the patient today; as noted above. We discussed at length potential causes of scrotal pain and epididymal lesion; we discussed further treatment options and risks and benefits of these treatment options. All questions were answered We discussed surveillance monitoring Follow-up with PRN per patient request Orders: Orders AMB Urinalysis Automated Today Z13.9 - Encounter for screening, unspecified Patient Instructions: The patient had an opportunity to ask questions regarding the treatment plan. All questions were answered. Physical exam, labs, and imaging were discussed and reviewed in detail. As well as risks, benefits, and discussion of treatment choices. No major barriers to understanding were identified. The patient expressed understanding and agreement with the above treatment plan. The patient was made aware they should contact our office by phone for worsening of their current condition, the appearance of new symptoms, or with any questions or concerns. Compliance is encouraged with any medications and follow up testing that is ordered. It is a privilege to be allowed the opportunity to participate in? your urological care.? Again, if you have any questions or concerns If you have any questions or concerns please do not hesitate to contact me. The office is [phone]. This note is constructed using voice recognition software. While every effort has been made to ensure accuracy corporation pilot errors may have been included. Yours sincerely, PRIMITIVO Barton Coding Level of Care Code New Pt Level 3 (82589) Diagnoses Scrotal pain N50.82 Epididymal cyst N50.3
--- OUTSIDE RECORDS SUMMARY | 2024-12-16 12:15 | XMS_ITS | Data Portability ---
Author Organization [facility] Jeffrey Hendricks [facility], [facility] Address [address] [place] [address] Care Team Providers Care Medical Office Technician Name Role Phone ELSAJOSE CORONADONIMA Primary Care Provider GINI ROSALES Civil Defense Director Assessment Encounter Date Assessment Date Assessment LastModified by Organization Details LastModified Time 02/06/2024 02/06/2024 Dx:right knee patellar arthritis Interval History:the patient returns, status post arthroscopy right knee June 2022, has significant lateral facet patellar arthritis. Benefiting from intermittent steroid injections since. SocHx: nonsmoker, non drinker ROS: negative Past Medical/Surgical History/Meds/Scot rgies reviewed and charted. Physical Exam: afebrile, vital signs stable, in no apparent distress, oriented to person/place/time . Gait:symmetric skin: intact, no erythema. Heart RRR. Lungs clear Abdomen soft, nontender. rightKNEE: no redness, warmth, deformity Effusion estimated 0cc. Atrophy none Range of Motion 0-130 degrees. Strength 5/5 all muscle groups. Gabo negative. Pivot Shift negative Varus/Valgus/Post erior laxity testing: negative. Joint Line Tenderness: negative. Patellofemoral crepitus mild. Contralateral knee: no deformity, no effusion, full motion, no laxity, no joint line tenderness, no patellar crepitus. New Studies: none Impression:right knee patellar arthritis Plan: 1.the patient has a chronic condition, will require maintenance care including intermittent steroid injections for flares, disease not severe enough to warrant arthroplasty. Follow-up with us as needed for injections. May continue to work full duty full-time. [facility] [employer] speech recognition neon sign erector software was used to create portions of this document. An attempt at proofreading has been made to minimize errors. Please call for corrections. jen Not available 02/06/2024 11:38:55 Plan of Treatment Reminders Order Date Submit Date Provider Last Modified By Organization Details Last Modified Time Details Appointments None recorded. Lab None recorded. Referral None recorded. Procedures None recorded. Surgeries None recorded. Imaging None recorded. Medication Orders diclofenac sodium 75 mg tablet,aleshia yed release 2024 025 [email or web address] [id number], [address], [place], [address], 11:23:29 Patient TargetsNo targets recorded. Patient InstructionsNo instructions recorded. Reason for Referral None Reported. Results Created Date Observation Date Name Description Value Unit Range Abnormal Flag Note LastModifiedBy Organization Detail LastModifiedTime 02/22/2012/06/2021 darlenei abdifatah/sandra dong tic resul t No observ ation record ed. [email or web address] Not Available 01/25 21:01:34 Result Notes None recorded. Problems Name Problem SNOMED Code Status Onset Date Resolution Date Notes Provider Name and Address Organization Details Recorded Time No complaints 093633033 Active Status : 'A'; Not Available [facility] 09:11:09 Problem Notes None recorded. Procedures Surgical History Date Name Laterality Status Provider Name and Address Organization Details Recorded Time 08/13/2024 Sports Knee 4&1 completed Ethan Weems PA-C [address] [facility], [place], [address], [facility] 08/13/2024 12:03:51 04/17/2024 Sports Knee 4&1 completed Ethan Weems PA-C [address] [address], [place], [address], [facility] 04/17/2024 08:00:52 11/13/2023 Sports Knee 4&1 completed Ethan Weems PA-C [address], [place], [address], [facility] 11/13/2023 10:07:37 Imaging Results None recorded. Procedure Notes None recorded. Medical Equipment None Reported. Allergies No known drug allergies Medications Name Sig Start Date Stop Date Status Note LastModified by Organization Details LastModified Time terbinafine HCl 250 mg tablet TAKE 1 TABLET BY MOUTH EVERY DAY 11/12 completed Not Available Not Available Not Available omeprazole 20 mg capsule,del ayed release TAKE 1 CAPSULE BY MOUTH EVERY DAY 11/12 completed Not Available Not Available Not Available diclofenac sodium 75 mg tablet,aleshia yed release TAKE 1 TABLET BY MOUTH TWICE A DAY active Not Available Not Available No t Available mirtazapine 15 mg tablet TAKE 1 TABLET BY MOUTH EVERY NIGHT AT BEDTIME FOR ANXIETY active Not Available Not Available No t Available ibuprofen 600 mg tablet TAKE 1 TABLET BY MOUTH THREE TIMES A DAY active Not Available Not Available No t Available sertraline 50 mg tablet TAKE 1 TABLET BY MOUTH EVERY DAY IN THE MORNING active Not Available Not Available No t Available nicotine 7 mg/24 hr daily transdermal patch APPLY 1 PATCH TRANSDERM AL ONCE A DAY 11/12 completed Not Available Not Available Not Available rosuvastati n 20 mg tablet TAKE 1 TABLET BY MOUTH EVERY DAY active Not Available Not Available No t Available oxycodone HCl-oxycodo ne-ASA 1 every [address] WHILE TAKING THIS MEDICATIO N 11/12 completed Statu s: 'Curr ent'; Not Available Not Available Not Available Vitals Date Recorded Body height Body mass index (BMI) Body weight Provider Name and Address Organization Details Last Updated DateTime 08/13/2024 182.88 cm 24.4 kg/m2 96356.63 g Margarita Segovia [facility] 08/13/2024 10:53:41 Date Recorded Body height Body mass index (BMI) Body weight Provider Name and Address Organization Details Last Updated DateTime 11/13/2023 182.88 cm 24 kg/m2 47569.85 g YING JIANG [facility] 11/13/2023 09:42:44 Date Recorded Body height Body mass index (BMI) Body weight Provider Name and Address Organization Details Last Updated DateTime 02/06/2024 182.88 cm 24.4 kg/m2 01858.63 g [id number] NAVA [facility] 02/06/2024 10:17:35 Date Recorded Body height Body mass index (BMI) Body weight Provider Name and Address Organization Details Last Updated DateTime 04/17/2024 182.88 cm 24.4 kg/m2 79662.63 g YING JIANG [place] [facility] [place] [facility] 04/17/2024 08:17:00 Social History None recorded. Functional Status None recorded. Mental Status None recorded. Family History Nothing Reported. Medical History No medical history recorded. Past Encounters Encounter ID Performer Location Encounter Start Date Encounter Closed Date Diagnosis/Indication Diagnosis SNOMED-CT Code Diagnosis ICD10 Code Diagnosis Note [id number] [facility] [address] [place] [address] 11/13/2023 09:31:48 11/13/2023 10:08:54 Arthritis of right knee 3942734646 418265 M13.769 [id number] Inder Foreman MD [facility] 2nd floor [address] [place] [address] 02/06/2024 09:54:00 02/29/2024 13:24:32 Pain of right knee joint 3551428516 86406 M25.063 [id number] [facility] [address] [place] [address] 04/17/2024 08:10:37 05/05/2024 13:50:36 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 4499272255 M17.31 Patellofem oral syndrome of right knee 4777052504 463417 M22.2X1 [id number] [facility] [address] [place] [address] 08/13/2024 10:36:49 09/05/2024 12:27:36 Pain of right knee joint 3961524143 97956 M25.561 Health Concerns Section Related Observation LastModified by Organization Detai ls LastModified Time None Recorded Concern Status LastModified by Organization Details LastModified Time None Recorded Advance Directives Directive None Recorded Payers Insurance Date Sequence Insurance Name Policy Number Policy Fry Covered Member ID Fyr Member ID Guarantor Name 11/09/2023 [facility] Abhi Dickinson Notes Date Note Type Note Provider Name and Address Organization Details Recorded Time 11/13/2023 text/html I am seeing the patient today under the supervision of Dr. Gaytan who was available but who did not see the patient.HPI: For follow-up visit for Flip who is a 53-year-old with history of work injury to the right knee. He is working light duty at this time. He finds that the work restrictions are tolerable and he is able to continue his work but on a light duty status. He had a cortisone injection 3 months ago with excellent benefit however pain has increased recently. Would like to continue his current work restrictions. Interestingly repeating cortisone today.Past family, medical, social history and review of systems has been reviewed, updated and signed by me and is located in the patient s chart.Examination:The patient is well appearing and in no apparent distress. Alert and oriented x3. Gait is symmetric. Right knee examination has intact motion and strength and stability. No significant soft tissue swelling or joint effusion. He has poor balance with attempted single leg stance and squatting maneuvers. Tenderness to palpation medial joint line and with rotational maneuvers. Mild patellofemoral crepitus but no safe and irritability with mobilization or palpation of the patella. Strength intact 5/5. No instability. Peripheral, vascular, lymphatic examination, skin, neurological, coordination, reflexes, sensation are within normal limits.Impression: Posttraumatic osteoarthritis right kneePlan: Flip is doing fairly well with his knee condition. He has a history of posttraumatic arthritis. At this time no additional surgical management indicated. We discussed continued conservative care and I recommended repeating cortisone today. He agrees to this. Work note given for continued light duty restrictions. Recommended a follow-up visit with Dr. Foreman and next office visit. Ethan Weems PA-C [address] [facility] [address], [place], [address], [facility] 11/13/2023 10:08:13 04/17/2024 text/html Dx:right knee neena bazan arthritisInterval History:the patient returns, status post arthroscopy right knee June 2022, has significant lateral facet patellar arthritis. Benefiting from intermittent steroid injections since. Flip had previous cortisone injection 5 months ago with long lasting benefit. Here at this time noting an increase in pain after returning to full duty work status. Would like to repeat injection. In the past he has used knee bracing but has lost some weight and previous brace is no longer fit.SocHx: nonsmoker, non drinkerROS: negativePast Medical/Surgical History/Meds/Allergies reviewed and charted.Physical Exam:afebrile, vital signs stable, in no apparent distress, oriented to person/place/time.Gait :symmetricskin: intact, no erythema.Heart RRR.Lungs clearAbdomen soft, nontender.rightKNEE: no redness, warmth, deformity Effusion estimated 0cc. Atrophy none Range of Motion 0-130 degrees. Strength 5/5 all muscle groups. Gabo negative. Pivot Shift negative Varus/Valgus/Posterior laxity testing: negative. Joint Line Tenderness: negative. Patellofemoral crepitus mild.Contralateral knee: no deformity, no effusion, full motion, no laxity, no joint line tenderness, no patellar crepitus.New Studies: noneImpression:right knee patellar arthritisPlan: 1.the patient has a chronic condition, will require maintenance care including intermittent steroid injections for flares, disease not severe enough to warrant arthroplasty. Follow-up with us as needed for injections. May continue to work full duty full-time.knee injection was performed today. Patient tolerated procedure well. Recheck p.r.n. A knee brace was prescribed today Genutrain brace for patellofemoral arthritis.The patient is ambulatory, but has weakness and/or instability of their extremity which requires stabilization from this semi-rigid/rigid orthosis to improve their function.Verbal and written instructions for the use and application of this item were given. Patient was instructed that should the brace result in increased pain, decreased sensation, increased swelling or an overall worsening of their medical condition, to please contact our office immediately. Ethan Weems PA-C [address] [facility] [address], [place], [address], [facility] 04/17/2024 08:36:29 08/13/2024 text/html I am seeing the patient today under the supervision of Dr. Gaytan who was available but who did not see the patient. HPI: Flip has a history of persistent right knee pain after work injury. He has been getting periodic cortisone injections every 3 to 4 months. Most recent injection March 2024. Patient is noting that the benefit is less and less beneficial. He is requesting some pain medication. He is working his full-time regular duty job. Past family, medical, social history and review of systems has been reviewed, updated and signed by me and is located in the patient's chart. Examination: The patient is well appearing and in no apparent distress. Alert and oriented x3. Gait is symmetric. There is reproducible clicking posterior patella. Pain about the patellofemoral joint. Overall knee range of motion strength and stability intact. X-rays from prior office visit reviewed today at [facility]. Shows significant patellofemoral tilt with mild subluxation and findings consistent with PF arthritis. Impression: Right knee pain with patellofemoral arthritis and patella malalignment. Plan: Treatment options discussed. He is using a knee sleeve. Recommended continued use of anti-inflammatory medication and is prescribed Voltaren 75 mg twice daily. Offered and recommended repeat cortisone injection which he agreed to. Knee injection performed without difficulty and tolerated well. See procedure note. Recheck in 3 to 4 months for reevaluation. Work note given to continue current work status Ethan Weems PA-C [address] [facility] [facility] [address], [place], [address], [place] [facility] 08/13/2024 12:04:32
== END 2024-12-16 12:04 | disposition home or self-care (01) ==
LOC: HO.HUSH 10:50
PROVIDERS: PCP Internal Medicine; Visit Provider Nurse Practitioner Family
DX: N50.82 Scrotal pain (principal); N50.3 Cyst of epididymis; Z13.9 Encounter for screening, unspecified
CPT/HCPCS: 99203

== ENCOUNTER → 2024-12-16 10:49 | Outpatient (BNVA) | payer BC, SELFPAY | PROVIDERS: PCP Internal Medicine; Visit Provider Nurse Practitioner Family | DX: N50.82 Scrotal pain (principal) | CPT/HCPCS: 81003 ==

== ENCOUNTER 2024-12-25 13:54 | Outpatient (AMB) | payer OTHER, SELFPAY ==
[2024-12-25 13:57] VITALS: BMI 28.1
--- NOTE | 2024-12-25 13:57 | MHC.OFFVIS ---
Vital Signs 12/25/24 13:57 Height 6 ft Weight 207 lb BMI 28.1 Intake Visit Reasons: Right knee pain and giving way Intake Note: Abhi is a 54 year old male who presents today as a new patient for evaluation of right knee patellafemoral OA, worker's-compensation injury: 08/30/2021. The patient describes his right knee pain as stabbing in nature. He did undergo right knee arthroscopic surgery at [facility] in 2022. He states that he gotten minimal relief from that procedure. He did go to physical therapy following the procedure which seemed to aggravate his pain. He has had both cortisone injections and viscosupplementation injections since his surgery. The viscosupplementation injections gave him no relief and the cortisone injection gave him only several weeks worth of relief. The patient states that at times his right knee will give out. He has taken Tylenol and diclofenac which gave him minimal relief. Allergies acetaminophen (From Percocet) Allergy (Unknown, Verified 12/25/24 13:58) Unknown oxycodone (From Percocet) Allergy (Unknown, Verified 12/25/24 13:58) Unknown Medication List - Last Reconciled 12/25/24 by Homero oMy MD [multivitamin ] rosuvastatin 20 mg PO BEDTIME [facility] Medical History Personal history of nicotine dependence Osteoarthritis Cervical disc disease Hypertriglyceridemia Surgical History History of colonoscopy History of arthroscopy of right knee (~2022) History of umbilical hernia repair (~2015) History of fusion of cervical spine (~2021) Family History Father No problems noted. Mother No problems noted. Social History Patient Tobacco Use Status: Former Tobacco user Years Smoked: (onset 17yo, 1/2-3/4ppd x 35yrs, 20pyh - quit 07/2022) Physical Exam Vital Signs: BMI result Body Mass Index 28.1 Const Other: Well-nourished well-developed very friendly male awake alert and oriented x3 in no acute distress Extrem Other: Bilateral lower extremity examination shows good capillary refill, no skin lesions noted, normal sensation light touch Right knee examination shows a minimal effusion, mild crepitus with range of motion, tenderness along his medial joint line, positive Brokolynn's test, no instability Results Reviewed Results Reviewed: Standing full weight-bearing x-rays of the patient's right knee show mild diffuse joint space narrowing, no acute bony abnormalities MRI of the patient's right knee taken at [facility] show mild diffuse degenerative changes as well as a medial meniscus tear Assessment & Plan Assessment & Plan (1) Tear of medial meniscus of right knee: Code(s): S83.241A - Other tear of medial meniscus, current injury, right knee, initial encounter Category: Medical Plan Mr. Dickinson presents with progressively worsening right knee pain and mechanical symptoms due to a medial meniscus tear. I had a lengthy discussion with the patient regarding the treatment options. At this point the patient has failed continued non operative treatments. The risks and benefits of right knee arthroscopic surgery were discussed at length with the patient. The patient wishes to proceed with surgery. He does understand that he may not get 100% relief of his symptoms depending on the severity of his degenerative changes. Surgery will involve right knee arthroscopic partial medial meniscectomy. He will be scheduled for next available date. He will follow-up as instructed. Feel free to call me at any time should questions regarding his orthopedic management arise. I spent 22 minutes in reviewing the patient's records and imaging studies, seeing the patient and documenting in the medical record. Coding Level of Care Code Est Pt Level 3 (49116) Complex EM visit Add On G2211 Diagnoses Tear of medial meniscus of right knee S83.241A
--- OUTSIDE RECORDS SUMMARY | 2024-12-25 13:57 | XMS_ITS | Clinical Summary ---
Author Organization [facility] [address] [place] [address] Address [address], [place] Phone Care Team Providers Care Land Commissioner Name Role Phone Rachel Stephens MD Primary Care Provider [phone] Encounters Date Type Department Care Team Description 12/10/2024 6:40 PM EDT - 12/10/2024 11:59 PM EDT Hospital Encounter Radiology Department [address] [phone] Other tear of medial meniscus, current injury, right knee, initial encounter Discharge Disposition: Home or Self Care from Last 3 Months Surgical History Surgery Date Site/Laterality Comments OTHER SURGICAL HISTORY PROCEDURE: DENIES PREVIOUS SURGERY HERNIA REPAIR 2016 PROCEDURE: HISTORICAL HERNIA REPAIR/UMB OTHER SURGICAL HISTORY 12/30/2021 PROCEDURE: WA ARTHRD ANT INTERBODY MIN DSC CRV BELOW C2; COMMENT: C5-6,6-7 ACDF, Dr. Montez Medical History Medical History Date Comments Hypertriglyceridemia 08/05/2014 DX:Hypertri glyceridemia Family History Medical History Relation Name Comments Hypertension Father UT 50s Diabetes Mother Heart attack Other 1 cousin age 50 Relation Name Status Comments Father Alive mi age 50's Mother Alive Other 1 Other 2 Social History Tobacco Use Types Packs/Day Years Used Date Smoking Tobacco: Every Day Cigarettes 1 37.7 Started: 1987 Smokeless Tobacco: Never Alcohol Use [...] Health Maintenance Due Date Last Done Comments Hepatitis A Vaccines (1 of 2 - Risk 2-dose series) 1990 Hepatitis B Vaccines (1 of 3 - 19+ 3-dose series) 1990 Pneumococcal Vaccine: 50+ Ye ars (1 of 2 - PCV) 1990 Pneumococcal Vaccine: Pediat rics (0 to 5 Years) and At-Risk Patients (6 to 64 Years) (1 of 2 - PCV) 1990 DTaP,Tdap,and Td Vaccines (2 - Td or Tdap) 11/16/2020 11/16/2010 Zoster Vaccines (1 of 2) 2021 Cholesterol Screening (Lipid Panel) 05/28/2022 Colorectal Cancer Screening: Colonoscopy 05/28/2022 Depression Screening 05/28/2022 HIV Screening 05/28/2022 Hepatitis C Screening 05/28/2022 Social Influencers of Health Screening 05/28/2022 COVID-19 Vaccine (2 - 2023-2 5 season) 2024 08/27/2021 Influenza Vaccine (Season Ended) 2025 HIB Vaccines [...] on patient's age to complete this topic Procedures Procedure Name Priority Date/Time Associated Diagnosis Comments MR KNEE WO CONTRAST RIGHT Routine 12/10/2024 7:28 PM EDT Other tear of medial meniscus, current injury, right knee, initial encounter from Last 3 Months Results * MR Knee wo Contrast Right (12/10/2024 7:28 PM EDT) Anatomical Region Laterality Modality Lower Extremities, Knee Right Magnetic Resonance 12/15/2024 7:57 AM EDT Impressions 12/15/2024 8:08 AM EDT 1. Findings suggestive of ruptured Casper's cyst, with fluid collection in the posteromedial aspect of the knee and filled with debris. 2. Radial tear involving the posterior horn of the medial meniscus. 3. Marked cartilage thinning involving the lateral aspect of the patella, without significant edema. -------- FINAL REPORT -------- Dictated By: Delphine Botello Dictated Date: 12/15/2024 07:57 ET Assigned Physician: Delphine Botello Reviewed and Electronically Signed By: Delphine Botello Signed Date: 12/15/2024 08:08 ET Workstation ID: [id number] Transcribed By: Self Edit Transcribed Date: 12/15/2024 07:57 ET Narrative 12/15/2024 8:08 AM EDT MR KNEE WO CONTRAST RIGHT TECHNIQUE: Multisequence MRI of the right knee without intravenous contrast. COMPARISON: None HISTORY: Right knee pain FINDINGS: Medial Compartment: Radial tear involving the posterior horn of the medial meniscus (501:19). No full-thickness cartilage defect or subchondral edema. Lateral Compartment: No meniscal tear. No full-thickness cartilage defect or subchondral edema. Patellofemoral Compartment: Marked cartilage thinning involving the lateral facet of the patella. No subchondral edema. Tendons: Quadriceps, patellar and popliteal tendons are intact. Ligaments: Anterior and posterior cruciate ligaments are intact. Medial and lateral collateral ligaments are intact. Bones: No areas of bone marrow edema, fracture or destructive focal lesion. Joint: Small suprapatellar joint effusion. Moderate size Casper's cyst. Fluid collection in the posterolateral aspect of the knee, communicating with the Casper's cyst, and filled with multiple debris. Procedure Note Delphine Botello MD - 12/15/2024 MR KNEE WO CONTRAST RIGHT TECHNIQUE: Multisequence MRI of the right knee without intravenouscontrast. COMPARISON: None HISTORY: Right knee pain FINDINGS: Medial Compartment: Radial tear involving the posterior horn of the medialmeniscus (501:19). No full-thickness cartilage defect or subchondraledema. Lateral Compartment: No meniscal tear. No full-thickness cartilage defector subchondral edema. Patellofemoral Compartment: Marked cartilage thinning involving thelateral facet of the patella. No subchondral edema. Tendons: Quadriceps, patellar and popliteal tendons are intact. Ligaments: Anterior and posterior cruciate ligaments are intact. Medialand lateral collateral ligaments are intact. Bones: No areas of bone marrow edema, fracture or destructive focallesion. Joint: Small suprapatellar joint effusion. Moderate size Casper's cyst.Fluid collection in the posterolateral aspect of the knee, communicatingwith the Casper's cyst, and filled with multiple debris. IMPRESSION: 1. Findings suggestive of ruptured Casper's cyst, with fluid collection inthe posteromedial aspect of the knee and filled with debris. 2. Radial tear involving the posterior horn of the medial meniscus. 3. Marked cartilage thinning involving the lateral aspect of the patella,without significant edema. -------- FINAL REPORT -------- Dictated By: Delphine Botello Dictated Date: 12/15/2024 07:57 ET Assigned Physician: Delphine Botello Reviewed and Electronically Signed By: Delphine Botello Signed Date: 12/15/2024 08:08 ET Workstation ID: [id number] Transcribed By: Self Edit Transcribed Date: 12/15/2024 07:57 ET us Homero Moy MD IMG MRI PROCEDURES Final Resul t from Last 3 Months Insurance [facility]) Care Teams Land Commissioner Relationship Specialty Start Date End Date Rachel Stephens MD [address] PCP - General Internal Medicine 09/05/21
--- OUTSIDE RECORDS SUMMARY | 2024-12-25 13:58 | XMS_ITS | Patient Health Record ---
Author Organization [facility] Address [address] [place] [address] Care Team Providers Care Desk Attendant Name Role Phone Doranereida Rachel Primary Care [...] Problem Status W/U Status Risk Notes Problem [id number] Rectal bleeding (K62.5) Active confirmed Problem [id number] Constipation, unspecified constipation type (K59.00) Active confirmed Plan Of Treatment Future Test Test Name Order Date COLONOSCOPY 10/26/2022 Insurance Providers Payer Name Payer Address Payer Phone Subscriber Number Group Number Insured Name Patient Relationship to Insured Coverage Start Date Coverage End Date [facility] [address] [place] [address] [id number] BO BIGGS Self - patient is the insured Medical (General) History Medical History History ICD Code Hypertriglyceridemia Radiculopathy/disc disease, cervical Osteoarthritis Surgical History Surgery Date(Month/Year) Umbilical hernia repair [id number] C5-6 neck fusion 2021 arthoscopy right knee 2022
== END 2024-12-25 14:18 | disposition home or self-care (01) ==
LOC: HO.HOS 13:55
PROVIDERS: PCP Internal Medicine; Visit Provider Orthopaedic Surgery
DX: S83.241A Other tear of medial meniscus, current injury, right knee, initial encounter (principal); Z04.2 Encounter for examination and observation following work accident
CPT/HCPCS: 99214

== ENCOUNTER → 2024-12-25 13:54 | Outpatient (BNVA) | payer BC, SELFPAY | PROVIDERS: PCP Internal Medicine; Visit Provider Orthopaedic Surgery | DX: M25.561 Pain in right knee (principal); S83.241A Other tear of medial meniscus, current injury, right knee, initial encounter | CPT/HCPCS: 99212 ==

== ENCOUNTER 2025-01-09 08:28 | Day surgery (SDC) | payer OTHER, SELFPAY ==
--- NOTE | 2025-01-07 12:58 | HO.ANESPROP2 ---
Documented by User: Danna Hernandez NP 01/07/25 12:59 HPI - Anesthesia Eval Consult details Narrative: 54yo M for Right Knee Arthroscopy with partial medial meniscectomy PMFSH Active Problems Active Problems: All Active Problems Epididymal cyst (Acute) Scrotal pain (Acute) Tear of medial meniscus of right knee (Acute) Right knee pain (Acute) Personal history of nicotine dependence (Acute) Precordial chest pain (Acute) Past Medical History Medical History Depression Personal history of nicotine dependence Osteoarthritis Cervical disc disease Hypertriglyceridemia Family History Family History Father No problems noted. Mother No problems noted. Family history of problems with anesthesia: No Surgical History Surgical History History of colonoscopy History of arthroscopy of right knee (~2022) History of umbilical hernia repair (~2015) History of fusion of cervical spine (~2021) History of Problems with Anesthesia: No Social History Social History Household Members: None Housing: Apartment Are you a primary hospice care consultant to a significant other at home: No Do you presently have visiting nurse or other home services: No Patient Tobacco Use Status: Former Tobacco user Tobacco use type: Cigarette Years Smoked: (onset 17yo, 1/2-3/4ppd x 35yrs, 20pyh - quit 07/2022) Use of substances other than those prescribed or required for medical reasons: No Have you been hit, kicked, punched, or otherwise hurt by someone within the past year? If so, by whom?: No Are you DNR?: No Advance Directives: No Advance Directives Information Provided: Yes Advance Directives on File: No Poor oral hygiene: No Meds Allergies Allergy/AdvReac Type Severity Reaction Status Date / Time oxycodone (From Percocet) AdvReac Unknown nausea, Verified 01/07/25 16:10 dizziness Active Medications: Current Medications Cefazolin Sodium/Dextrose (Ancef) 2 gm in 50 mls @ 100 mls/hr IV PREOP ONE Stop: 01/09/25 05:57 Home Medications ?Medication ?Instructions ?Recorded ?Confirmed ?Last Taken ?Type rosuvastatin 20 mg tablet 20 mg PO BEDTIME 11/13/22 01/07/25 Unknown History Exam Narrative Narrative: Cardiopulm Stress 2023 Protocol: ALEXIS Max HR: 173 BPM 102% of Pred: 168 BPM Max BP: 128/080 mmHG Max Work Load: 10.1 METS Exercise stress test exercise 8 min 1 sec of Alexis protocol achieving 101% MPHR, without anginal symptoms, with isolated PVCs, with normotensive response to exercise, without EKG changes Echo images obtained by tech at rest and immediately post peak exercise. Definty contrast used. Test reviewed with Dr. Fox. Exercise stress echocardiogram was reviewed. At rest, there is normal LVEF and wall motion. With peak exercise, there is appropriate augmentation of wall thickening and contractility. There is normal decrease in end-systolic volumes. Overall, no evidence of exercise induced wall motion abnormality to suggest obstructive coronary disease. Medial and lateral E', inflow dopplers; pulmonary artery systolic pressures were measured during rest and after peak exercise. There is no evidence of exercise induced diastolic dysfunction or pulmonary hypertension. Overall, normal study. ECHO 2022 Conclusions: - The left ventricular systolic function is normal. The calculated ejection fraction is 60% by biplane method. - No obvious valvular pathology seen on this study. Assessment and Plan Assessment Anesthesia Assessment: Chart Reviewed Final Anesthetic Review Family History of Problems with Anesthesia: No History of Problems with Anesthesia: No Documented by User: Soila Stafford MD 01/09/25 08:58 PMFSH Past Medical History Medical History Depression Personal history of nicotine dependence Osteoarthritis Cervical disc disease Hypertriglyceridemia Family History Family History Father No problems noted. Mother No problems noted. Surgical History Surgical History History of colonoscopy History of arthroscopy of right knee (~2022) History of umbilical hernia repair (~2015) History of fusion of cervical spine (~2021) Social History Social History Household Members: None Housing: Apartment Are you a primary hospice care consultant to a significant other at home: No Do you presently have visiting nurse or other home services: No Patient Tobacco Use Status: Former Tobacco user Tobacco use type: Cigarette Years Smoked: (onset 17yo, 1/2-3/4ppd x 35yrs, 20pyh - quit 07/2022) Use of substances other than those prescribed or required for medical reasons: No Have you been hit, kicked, punched, or otherwise hurt by someone within the past year? If so, by whom?: No Are you DNR?: No Advance Directives: No Advance Directives Information Provided: Yes Advance Directives on File: No Poor oral hygiene: No Meds Allergies Allergy/AdvReac Type Severity Reaction Status Date / Time oxycodone (From Percocet) AdvReac Unknown nausea, Verified 01/07/25 16:10 dizziness Home Medications ?Medication ?Instructions ?Recorded ?Confirmed ?Last Taken ?Type rosuvastatin 20 mg tablet 20 mg PO BEDTIME 11/13/22 01/07/25 Unknown History Exam Airway Mallampati Class: II TM Dist: >3cm Neck ROM: Full Heart: rrr Lungs: cta Assessment and Plan Assessment Anesthesia Assessment: Anesthesia Plan Discussed Final Anesthetic Review NPO: Yes ASA Class: III Final Preanesthetic Review: No Changes in Pt Med Stat, Meds/Allgs Chart Reviewed, Consent Obtained/Reviewed and Anes Risks/Benef Reviewed Patient Risk: Intermediate Procedure Risk: Intermediate Anesthetic Plan Anesthetic Plan: GA Disposition: Standard PACU
[2025-01-07 15:58] VITALS: BMI 28.1
[2025-01-07 16:11] VITALS: BMI 28.5
[2025-01-09 09:05] VITALS: BP 130/87; PULSE 83; RESP 14; TEMP 36.6; O2SAT 96
[2025-01-09] MEDS: Lactated Ringers 1,000 ML 100 ML IVCONT (09:24)
[2025-01-09 10:48] VITALS: BP 140/83; PULSE 68; RESP 12; TEMP 36.1; O2SAT 97
[2025-01-09 10:50] VITALS: BP 141/85; PULSE 75; RESP 14; O2SAT 97
[2025-01-09 10:55] VITALS: BP 129/86; PULSE 75; RESP 16; O2SAT 98
--- NOTE | 2025-01-09 10:58 | PM.OP ---
Brief Operative Note Date of Service: 01/09/25 Pre-op diagnosis: Right knee medial meniscus tear, right knee degenerative joint disease Post-op diagnosis: same Procedure: Right knee arthroscopic partial medial meniscectomy, right knee arthroscopic chondroplasty of the undersurface of the patella as well as the medial femoral condyle Implants: none Surgeon: Homero Moy MD Anesthesia: GLMA Was an Monument Stonecutter used for this Procedure?: No Estimated blood loss (mL): 10 Pathology: none sent Condition: stable Disposition: PACU
--- NOTE | 2025-01-09 10:58 | W.PM.OPN ---
Operative Note Operative Note Date of Service: 01/09/25 Narrative: After the patient was identified as Abhi Dickinson and his right knee was initialed by myself they were brought to the operating room where general anesthesia was induced by the anesthesiologist in routine fashion. The patient was given 2 g of IV Ancef for infection prophylaxis. A formal time-out was completed. The patient's right lower extremity was prepped and draped in sterile fashion. Marcaine with epinephrine was injected into the planned incision sites as well as their right knee joint. A # 11 scalpel blade was used to make an anterolateral portal 1 cm proximal to the joint line and 1 cm lateral to the patellar tendon. Blunt trocar technique was used into the suprapatellar pouch with the knee in extension. Diagnostic arthroscopy showed multiple bands of thickened plica which would be excised at the end of the procedure. There were no loose bodies or abnormalities found in either the medial or lateral gutters. There were diffuse grades 1 and 2 degenerative changes of the undersurface of the patella as well as grade 1 degenerative changes of the trochlear groove. The patient's knee was flexed to 45 degrees and a valgus force was placed upon it. The medial compartment was entered. An anteromedial portal was made 1 cm proximal to the joint line and 1 cm medial to the patellar tendon. Probing of the medial meniscus showed a radial tear of the posterior horn. A partial medial meniscectomy was performed using the arthroscopic shaver. Following the partial meniscectomy the remainder of the meniscus tissue was stable. There were diffuse grades 1 and 2 degenerative changes of the medial femoral condyle as well as diffuse grade 1 degenerative changes of the medial tibial plateau. The articular surface of the medial femoral condyle was made smooth using the arthroscopic shaver. The articular surface of the medial tibial plateau was already smooth so no chondroplasty was indicated. The patient's knee was then placed into a neutral position. There was no injury to the anterior cruciate ligament. The patient's knee was then placed into the figure of 4 position and the lateral compartment was entered. There were minimal degenerative changes of the lateral femoral condyle and lateral tibial plateau. There was no evidence of lateral meniscus tearing. The patient's knee was once again brought into extension and the suprapatellar pouch was entered. The arthroscopic shaver and the ArthroCare Wand were used to excise the thickened bands of plica. The undersurface of the patella was then made smooth using the arthroscopic shaver. The articular surface of the trochlear groove was already smooth so no chondroplasty was indicated. The knee joint was irrigated and then drained. All arthroscopic instruments were removed. The 2 portals were closed with 3-0 nylon interrupted suture. The knee joint was injected with Marcaine. Dry sterile dressing and Eduardo bandages were placed over the patient's knee. The patient was awoken and extubated in the operating room. They were transferred to the recovery room in stable condition.
[2025-01-09 11:00] VITALS: BP 133/82; PULSE 73; RESP 16; O2SAT 96
[2025-01-09 11:15] VITALS: BP 149/83; PULSE 85; RESP 16; TEMP 36.1; O2SAT 96
== END 2025-01-09 12:17 | disposition home or self-care (01) ==
PROVIDERS: PCP Internal Medicine; Visit Provider Orthopaedic Surgery
PROC: (CPT 29870; principal; 2025-01-09 10:30)
DX: S83.241A Other tear of medial meniscus, current injury, right knee, initial encounter (principal); M17.11 Unilateral primary osteoarthritis, right knee; M25.561 Pain in right knee; M23.51 Chronic instability of knee, right knee; M23.8X1 Other internal derangements of right knee; M67.51 Plica syndrome, right knee; X58.XXXA Exposure to other specified factors, initial encounter; Y93.9 Activity, unspecified; Y92.69 Other specified industrial and construction area as the place of occurrence of the external cause; Y99.0 Civilian activity done for income or pay; M50.90 Cervical disc disorder, unspecified, unspecified cervical region; E78.1 Pure hyperglyceridemia; Z98.890 Other specified postprocedural states; Z98.1 Arthrodesis status; Z79.899 Other long term (current) drug therapy; Z88.5 Allergy status to narcotic agent; Z87.891 Personal history of nicotine dependence
CPT/HCPCS: 29881; J0131; J0165; J0690; J0696; J1100; J1885; J2003; J2250; J2405; J2704; J2795; J3010

== ENCOUNTER → 2025-01-09 08:28 | Outpatient (BNV) | payer OTHER, SELFPAY | PROVIDERS: PCP Internal Medicine; Visit Provider Orthopaedic Surgery | DX: S83.241A Other tear of medial meniscus, current injury, right knee, initial encounter (principal) | CPT/HCPCS: 29881 ==

== ENCOUNTER 2025-01-22 11:30 | Outpatient (AMB) | payer BC, SELFPAY ==
--- NOTE | 2025-01-22 11:34 | A.OFFVIS_ITS ---
Intake Visit Reasons: PO RT knee 01/09/25 Intake Note: Abhi is a 54 year old male who presents today as a Post Op Right knee 01/09/25 . Patient states that he has some swelling and pain. He is using a cane to ambulate. He has not yet returned to work. Allergies oxycodone (From Percocet) Adverse Reaction (Unknown, Verified 01/22/25 11:34) nausea, dizziness Medication List - Last Reconciled 01/22/25 by Claudia Meade RN ibuprofen 600 mg PO Q8H PRN oxycodone 5 mg PO Q6H PRN rosuvastatin 20 mg PO BEDTIME PFSH Medical History Depression Personal history of nicotine dependence Osteoarthritis Cervical disc disease Hypertriglyceridemia Surgical History History of colonoscopy History of arthroscopy of right knee (~2022) History of umbilical hernia repair (~2015) History of fusion of cervical spine (~2021) Family History Father No problems noted. Mother No problems noted. Social History Household Members: None Housing: Apartment Are you a primary human services care specialist to a significant other at home: No Do you presently have visiting nurse or other home services: No Patient Tobacco Use Status: Former Tobacco user Tobacco use type: Cigarette Years Smoked: (onset 17yo, 1/2-3/4ppd x 35yrs, 20pyh - quit 07/2022) Physical Exam Extrem Other: Right knee examination shows that the surgical incisions are healing well, no erythema, mild discomfort with range of motion, no instability Assessment & Plan Assessment & Plan (1) Right knee pain: Code(s): M25.561 - Pain in right knee Category: Medical Plan Mr. Dickinson is doing well after undergoing right knee revision arthroscopic surgery on 01/09/2025. His sutures were removed and Steri-Strips placed over his incisions. He can gradually progress to activities as tolerated. He will be cleared to return to work once his discomfort and strength have improved. He will contact me prior to his follow-up appointment in 2 months should any questions or concerns arise. Coding Level of Care Code Global (85156) Diagnoses Right knee pain M25.561
--- OUTSIDE RECORDS SUMMARY | 2025-01-22 12:15 | XMS_ITS ---
Author Name [facility] Organization Unknown Care Team Organization Name Specialty Phone Email Start Date End Da te [facility] Venkat Juárez Primary Care 05/02/202201/23
--- OUTSIDE RECORDS SUMMARY | 2025-01-22 12:15 | XMS_ITS | Patient Health Record ---
Author Organization [facility] Address [address] [place] [address] Care Team Providers Care Drum Cleaner Name Role Phone Doranereida Rachel Primary Care [...] Problem Status W/U Status Risk Notes Problem [id number] Rectal bleeding (K62.5) Active confirmed Problem [id number] Constipation, unspecified constipation type (K59.00) Active confirmed Plan Of Treatment Future Test Test Name Order Date COLONOSCOPY 10/26/2022 Insurance Providers Payer Name Payer Address Payer Phone Subscriber Number Group Number Insured Name Patient Relationship to Insured Coverage Start Date Coverage End Date [facility] [address] [place] [address] [id number] BO BIGGS Self - patient is the insured Medical (General) History Medical History History ICD Code Hypertriglyceridemia Radiculopathy/disc disease, cervical Osteoarthritis Surgical History Surgery Date(Month/Year) Umbilical hernia repair 7734-6190 C5-6 neck fusion 2021 arthoscopy right knee 2022
--- OUTSIDE RECORDS SUMMARY | 2025-01-22 12:15 | XMS_ITS | Clinical Summary ---
Author Organization [facility] [address] [place] [address] Address [address], [place] Phone Care Team Providers Care Book Solicitor Name Role Phone Rachel Stephens MD Primary Care Provider [phone] Encounters Date Type Department Care Team Description 12/10/2024 6:40 PM EDT - 12/10/2024 11:59 PM EDT Hospital Encounter Radiology Department [address] [phone] Other tear of medial meniscus, current injury, right knee, initial encounter Discharge Disposition: Home or Self Care from Last 3 Months Surgical History Surgery Date Site/Laterality Comments OTHER SURGICAL HISTORY PROCEDURE: DENIES PREVIOUS SURGERY HERNIA REPAIR 2016 PROCEDURE: HISTORICAL HERNIA REPAIR/UMB OTHER SURGICAL HISTORY 12/30/2021 PROCEDURE: [place] ARTHRD ANT INTERBODY MIN DSC CRV BELOW C2; COMMENT: C5-6,6-7 ACDF, Dr. Montez Medical History Medical History Date Comments Hypertriglyceridemia 08/05/2014 DX:Hypertri glyceridemia Family History Medical History Relation Name Comments Hypertension Father [place] 50s Diabetes Mother Heart attack Other 1 cousin age 50 Relation Name Status Comments Father Alive mi age 50's Mother Alive Other 1 Other 2 Social History Tobacco Use Types Packs/Day Years Used Date Smoking Tobacco: Every Day Cigarettes 1 37.8 Started: 1987 Smokeless Tobacco: Never Alcohol Use [...] ars (1 of 2 - PCV) 1990 DTaP,Tdap,and Td Vaccines (2 - Td or Tdap) 11/16/2020 11/16/2010 Zoster Vaccines (1 of 2) 2021 Cholesterol Screening (Lipid Panel) 05/28/2022 Colorectal Cancer Screening: Colonoscopy 05/28/2022 HIV Screening 05/28/2022 Hepatitis C Screening 05/28/2022 Social Influencers of Health Screening 05/28/2022 COVID-19 Vaccine (2 - 2023-2 5 season) 2024 08/27/2021 Depression Screening 06/25/2024 Influenza Vaccine (#1) 2025 HIB Vaccines Aged Out No longer [...] Signed Date: 12/15/2024 08:08 ET Workstation ID: [id number] Transcribed By: Self Edit Transcribed Date: 12/15/2024 [...] Signed Date: 12/15/2024 08:08 ET Workstation ID: [id number] Transcribed By: Self Edit Transcribed Date: 12/15/2024 07:57 ET Homero Moy MD IMG MRI PROCEDURES Final Resul t from Last [address] [place] [address] ([facility]) Care Teams Book Solicitor Relationship Specialty Start Date End Date Rachel Stephens MD [address] [facility] [address] PCP - General Internal Medicine 09/05/21
== END 2025-01-22 12:01 | disposition home or self-care (01) ==
LOC: HO.HOS 11:30
PROVIDERS: PCP Internal Medicine; Visit Provider Orthopaedic Surgery
DX: M25.561 Pain in right knee (principal)
CPT/HCPCS: 99024

== ENCOUNTER 2025-02-28 07:55 | Outpatient (REF) | payer BC, SELFPAY ==
--- NOTE | ~2025-02-28 | CT_ITS ---
CLINICAL HISTORY: Z87.891 - Personal history of nicotine dependence CT lung cancer screening (LDCT) Comparison: 11/30/2023 Technique: Axial CT images of the chest using low-dose technique. Referring provider counseled the patient on shared decision-making for LDCT screening. Additional counseling was provided on smoking cessation. Effective radiation dose total: DLP 58.9 mGycm, CTDIvol 1.6 mGy. Findings: Lung: No new solid or semi solid lesion. Ground-glass type opacification in right lower lobe, unchanged. Coronary artery calcifications: none Limited upper abdomen: Unremarkable Other: None IMPRESSION: Lung-RADS 2, benign finding. Continued annual screening recommended. This document has been electronically signed by: Kaz Milian MD on 03/01/2025 08:57:04
--- OUTSIDE RECORDS SUMMARY | 2025-02-28 07:57 | XMS_ITS | Clinical Summary ---
Author Organization [facility] [address] [place] [address] Address [address], [place] Phone Care Team Providers Care Head Of Business Development Name Role Phone Rachel Stephens MD Primary Care Provider [phone] Encounters Date Type Department Care Team Description 12/10/2024 6:40 PM EDT - 12/10/2024 11:59 PM EDT Hospital Encounter Radiology Department [address] [phone] Other tear of medial meniscus, current injury, right knee, initial encounter Discharge Disposition: Home or Self Care from Last 3 Months Surgical History Surgery Date Site/Laterality Comments OTHER SURGICAL HISTORY PROCEDURE: DENIES PREVIOUS SURGERY HERNIA REPAIR 2016 PROCEDURE: HISTORICAL HERNIA REPAIR/UMB OTHER SURGICAL HISTORY 12/30/2021 PROCEDURE: [place] ARTHRD ANT INTERBODY MIN DSC CRV BELOW C2; COMMENT: C5-6,6-7 ACDF, Dr. Montez Medical History Medical History Date Comments Hypertriglyceridemia 08/05/2014 DX:Hypertri glyceridemia Family History Medical History Relation Name Comments Hypertension Father [place] 50s Diabetes Mother Heart attack Other 1 cousin age 50 Relation Name Status Comments Father Alive mi age 50's Mother Alive Other 1 Other 2 Social History Tobacco Use Types Packs/Day Years Used Date Smoking Tobacco: Every Day Cigarettes 1 37.9 Started: 1987 Smokeless Tobacco: Never Alcohol Use [...] 05/28/2022 Social Influencers of Health Screening 05/28/2022 Depression Screening 06/25/2024 COVID-19 Vaccine (2 - 2024-2 6 season) 2025 08/27/2021 Influenza Vaccine (#1) 2025 HIB Vaccines Aged [...] Signed Date: 12/15/2024 08:08 ET Workstation ID: [id number] Transcribed By: Self Edit Transcribed Date: 12/15/2024 [...] Signed Date: 12/15/2024 08:08 ET Workstation ID: [id number] Transcribed By: Self Edit Transcribed Date: 12/15/2024 07:57 ET Homero Moy MD IMG MRI PROCEDURES Final Resul t from Last [address] [place] [address] ([facility]) Care Teams Head Of Business Development Relationship Specialty Start Date End Date Rachel Stephens MD [address] [facility] [address], [place] PCP - General Internal Medicine 09/05/21
--- OUTSIDE RECORDS SUMMARY | 2025-02-28 07:57 | XMS_ITS | Patient Health Record ---
Author Organization [facility] Address [address] [place] [address] Care Team Providers Care Porcelain Slusher Name Role Phone Doranereida Rachel Primary Care [...] Problem Status W/U Status Risk Notes Problem [id number] Rectal bleeding (K62.5) Active confirmed Problem [id number] Constipation, unspecified constipation type (K59.00) Active confirmed Plan Of Treatment Future Test Test Name Order Date COLONOSCOPY 10/26/2022 Insurance Providers Payer Name Payer Address Payer Phone Subscriber Number Group Number Insured Name Patient Relationship to Insured Coverage Start Date Coverage End Date [facility] [address] [place] [address] [id number] BO BIGGS Self - patient is the insured Medical (General) History Medical History History ICD Code Hypertriglyceridemia Radiculopathy/disc disease, cervical Osteoarthritis Surgical History Surgery Date(Month/Year) Umbilical hernia repair [id number] C5-6 neck fusion 2021 arthoscopy right knee 2022
== END 2025-02-28 07:56 | disposition home or self-care (01) ==
LOC: HO.CT 07:55
PROVIDERS: PCP Internal Medicine; Visit Provider Physician Assistant Medical
DX: Z12.2 Encounter for screening for malignant neoplasm of respiratory organs (principal); Z87.891 Personal history of nicotine dependence
CPT/HCPCS: 71271

== ENCOUNTER → 2025-02-28 07:56 | Outpatient (BNV) | payer BC, SELFPAY | PROVIDERS: PCP Internal Medicine; Visit Provider Specialist | DX: Z12.2 Encounter for screening for malignant neoplasm of respiratory organs (principal); Z87.891 Personal history of nicotine dependence | CPT/HCPCS: 71271 ==

== ENCOUNTER 2025-03-12 12:59 | Outpatient (AMB) | payer BC, SELFPAY ==
--- NOTE | 2025-03-12 13:05 | MHC.OFFVIS ---
Intake Visit Reasons: PO RT knee 01/09/25 Intake Note: Abhi is a 54 year old man who presents with complaints of mild to moderate discomfort in his right knee after undergoing revision right knee arthroscopic surgery on 01/09/2025. The patient does do quite a bit of walking at work. The patient feels like he is somewhat deconditioned after dealing with right knee pain for the last few years. He does take ibuprofen which gives him mild relief. Allergies oxycodone (From Percocet) Adverse Reaction (Unknown, Verified 03/12/25 13:09) nausea, dizziness Medication List - Last Reconciled 03/12/25 by Homero Moy MD ibuprofen 600 mg PO Q8H PRN oxycodone 5 mg PO Q6H PRN rosuvastatin 20 mg PO BEDTIME PFSH Medical History Depression Personal history of nicotine dependence Osteoarthritis Cervical disc disease Hypertriglyceridemia Surgical History History of colonoscopy History of arthroscopy of right knee (~2022) History of umbilical hernia repair (~2015) History of fusion of cervical spine (~2021) Family History Father No problems noted. Mother No problems noted. Social History Household Members: None Housing: Apartment Are you a primary vision care associate to a significant other at home: No Do you presently have visiting nurse or other home services: No Patient Tobacco Use Status: Former Tobacco user Tobacco use type: Cigarette Years Smoked: (onset 17yo, 1/2-3/4ppd x 35yrs, 20pyh - quit 07/2022) Physical Exam Extrem Other: Right knee examination shows that the surgical incisions are well healed, no erythema, mild crepitus with range of motion, no instability Assessment & Plan Assessment & Plan (1) Right knee pain: Code(s): M25.561 - Pain in right knee Category: Medical Plan Mr. Dickinson continues to do fairly well after undergoing right knee arthroscopic revision surgery on 01/09/2025. He does have residual discomfort due to early degenerative joint disease. We will hold off on a cortisone injection at this time. I did give him a prescription to go to formal physical therapy here at [facility] for [id number] exercises and gentle strengthening. He will contact me prior to his follow-up appointment in 2 months should any questions or concerns arise. Orders: Orders PT Evaluation and Treatment 03/13/25 M25.561 - Pain in right knee, R53.81 - Other malaise Coding Level of Care Code Global (26615) Diagnoses Right knee pain M25.561
--- OUTSIDE RECORDS SUMMARY | 2025-03-12 15:01 | XMS_ITS | Clinical Summary ---
Author Organization [facility] [address] [place] [address] Address [address] [place], [place] Phone Care Team Providers Care Taximeter Repairer Name Role Phone Rachel Stephens MD Primary Care Provider [phone] Encounters Date Type Department Care Team Description 12/10/2024 6:40 PM EDT - 12/10/2024 11:59 PM EDT Hospital Encounter Radiology Department [address] [phone] Other tear of medial meniscus, current injury, right knee, initial encounter Discharge Disposition: Home or Self Care from Last 3 Months Surgical History Surgery Date Site/Laterality Comments OTHER SURGICAL HISTORY PROCEDURE: DENIES PREVIOUS SURGERY HERNIA REPAIR 2016 PROCEDURE: HISTORICAL HERNIA REPAIR/UMB OTHER SURGICAL HISTORY 12/30/2021 PROCEDURE: [place] ARTHRD ANT INTERBODY MIN DSC CRV BELOW C2; COMMENT: C5-6,6-7 ACDF, Dr. Montez Medical History Medical History Date Comments Hypertriglyceridemia 08/05/2014 DX:Hypertri glyceridemia Family History Medical History Relation Name Comments Hypertension Father [place] 50s Diabetes Mother Heart attack Other 1 cousin age 50 Relation Name Status Comments Father Alive mi age 50's Mother Alive Other 1 Other 2 Social History Tobacco Use Types Packs/Day Years Used Date Smoking Tobacco: Every Day Cigarettes 1 38 Started: 1987 Smokeless Tobacco: Never Alcohol Use [...] Signed Date: 12/15/2024 08:08 ET Workstation ID: [id number] Transcribed By: Self Edit Transcribed Date: 12/15/2024 [...] Signed Date: 12/15/2024 08:08 ET Workstation ID: [id number] Transcribed By: Self Edit Transcribed Date: 12/15/2024 07:57 ET Homero Moy MD IMG MRI PROCEDURES Final Resul t from Last [address] [place] [address] [address]) Care Teams Taximeter Repairer Relationship Specialty Start Date End Date Rachel Stephens MD [address] PCP - General Internal Medicine 09/05/21
== END 2025-03-12 13:25 | disposition home or self-care (01) ==
LOC: HO.HOS 13:00
PROVIDERS: PCP Internal Medicine; Visit Provider Orthopaedic Surgery
DX: M25.561 Pain in right knee (principal)
CPT/HCPCS: 99024

== ENCOUNTER 2025-04-21 06:31 | Outpatient (REF) | payer BC, SELFPAY ==
--- OUTSIDE RECORDS SUMMARY | 2025-04-21 06:35 | XMS_ITS | Data Portability ---
Author Organization [facility] Jeffrey Hendricks [facility] Address [address] [place] [address] Care Team Providers Care Milled Rice Broker Name Role Phone ELSAJOSE CORONADONIMA Primary Care Provider GINI ROSALES Chimney Mechanic [phone] Assessment Encounter Date Assessment Date Assessment LastModified [...] May continue to work full duty full-time. 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 Patient InstructionsNo [...] Address Organization Details Recorded Time No complaints [id number] Active Status : 'A'; Not Available [facility] 09:11:09 Problem Notes None recorded. Procedures Surgical History Date Name Laterality Status Provider Name and Address Organization Details Recorded Time 08/13/2024 Sports Knee 4&1 completed Ethan Weems PA-C [address] [facility], [place], [address], [facility] 08/13/2024 12:03:51 04/17/2024 Sports Knee 4&1 completed Ethan Weems PA-C [address], [place], [address], [facility] 04/17/2024 08:00:52 11/13/2023 Sports Knee 4&1 completed Ethan Weems PA-C [address], [place], [address], [facility] 11/13/2023 10:07:37 Imaging Results [...] 1 TABLET BY MOUTH TWICE A DAY 2024 active Not Available Not Available Not Avai lable mirtazapine 15 mg tablet TAKE 1 TABLET [...] Updated DateTime 08/13/2024 182.88 cm 24.4 kg/m2 83904.63 g Margarita Segovia [facility] 08/13/2024 10:53:41 Date Recorded Body height Body mass index (BMI) Body weight Provider Name and Address Organization Details Last Updated DateTime 11/13/2023 182.88 cm 24 kg/m2 04263.85 g YING JIANG [facility] 11/13/2023 09:42:44 Date Recorded Body height Body mass index (BMI) Body weight Provider Name and Address Organization Details Last Updated DateTime 02/06/2024 182.88 cm 24.4 kg/m2 71987.63 g АЛЕКСАНДР NAVA [facility] 02/06/2024 10:17:35 Date Recorded Body height Body mass index (BMI) Body weight Provider Name and Address Organization Details Last Updated DateTime 04/17/2024 182.88 cm 24.4 kg/m2 11084.63 g YING JIANG [facility] 04/17/2024 08:17:00 Social History None recorded. Functional Status None recorded. Mental Status None recorded. Family History Nothing Reported. Medical History No medical history recorded. Past Encounters Encounter ID Performer Location Encounter Start Date Encounter Closed Date Diagnosis/Indication Diagnosis SNOMED-CT Code Diagnosis ICD10 Code Diagnosis IMO Codes Diagnosis Note [id number] [place] [address] 11/13/2023 09:31:48 11/13/2023 10:08:54 Arthritis of right knee joint 9243719990 339021 M13.330 [id number] Inder Foreman MD [facility] 2nd floor [address] [facility] [place] [address] 02/06/2024 09:54:00 02/29/2024 13:24:32 Pain of right knee joint 9924976045 82887 M25.089 [id number] HANS Stark [address] [place] [address] 04/17/2024 08:10:37 05/05/2024 13:50:36 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 4944200723 M17.31 [id number] Patellofem oral syndrome of right knee 7026885756 905920 M22.2X1 [id number] HANS Stark [address] [place] [address] 08/13/2024 10:36:49 09/05/2024 12:27:36 Pain of right knee joint 6756306415 59274 M25.561 [id number] Health Concerns Section Related Observation LastModified by Organization Detai ls LastModified Time None Recorded Concern Status LastModified by Organization Details LastModified Time None Recorded Advance Directives Directive None Recorded Payers Insurance Date Sequence Insurance Name Policy Number Policy Fry Covered Member ID Fry Member ID Guarantor Name 11/09/2023 [facility] Abhi Dickinson Notes Date Note Type Note [...] next office visit. Ethan Weems PA-C [address] [facility] [address], [place], [address], [facility] 11/13/2023 10:08:13 04/17/2024 text/html Dx:right knee patellar arthritisInterval History:the patient returns, status post arthroscopy [...] our office immediately. Ethan Weems PA-C [address], [place], [address], [facility] 04/17/2024 08:36:29 08/13/2024 text/html [...] office visit reviewed today at [facility]. Shows significant patellofemoral tilt with mild [...] current work status Ethan Weems PA-C [address] [facility] [address], [place], [address], [facility] 08/13/2024 12:04:32
--- OUTSIDE RECORDS SUMMARY | 2025-04-21 06:35 | XMS_ITS | Patient Health Record ---
Author Organization [facility] Address [address] [place] [address] Care Team Providers Care Burr Picker Name Role Phone Doranereida Rachel Primary Care Provider UnavailRoberto Rivero Jr Unavailable [phone] Allergies Allergen (clinical drug ingredient) Drug/Non Drug Allergy documented on EMR Reaction Allergy Type Onset Date Status acetaminophen / oxycodone Percocet Unknown Drug Allergy Active Reason For Referral No Information Medications Medication SIG (Take, Route, Frequency, Duration) Notes Start Date End Date Status MiraLax (colon prep) 17 GM/SCOOP mixed with Gatorade or Crystal Light Orally begin at 5:00 p.m. the day before the procedure; Duration: 1 day 10/26/2022 Active Rosuvastatin Calcium 20 MG Oral; Duration: 90 Active Multivitamin - 1 tablet Orally Once a day; Duration: 30 day(s) Active Fenofibrate 145 MG TAKE 1 TABLET BY ALBARO TH EVERY DAY Oral; Duration: 90 Active Social History Tobacco Use: Social [...] Problem Status W/U Status Risk Notes Problem Rectal bleeding (03416112) Rectal bleeding (K62.5) Active confirmed Problem Constipation (23606471) Constipation, unspecified constipation type (K59.00) Active confirmed Plan Of Treatment Future Test Test Name Order Date COLONOSCOPY 10/26/2022 Insurance Providers Payer Name Payer Address Payer Phone Subscriber Number Group Number Insured Name Patient Relationship to Insured Coverage Start Date Coverage End Date [facility] [address] [place] [address] [phone] [id number] BO [id number] Self - patient is the insured Medical (General) History Medical History History ICD Code Hypertriglyceridemia Radiculopathy/disc disease, cervical Osteoarthritis Surgical History Surgery Date(Month/Year) Umbilical hernia repair 4121-4101 C5-6 neck fusion 2021 arthoscopy right knee 2022
--- OUTSIDE RECORDS SUMMARY | 2025-04-21 06:35 | XMS_ITS | Clinical Summary ---
Author Organization [address] Address [address] [place] [address] Phone Care Team Providers Care Architectural Project Manager Name Role Phone Rachel Stephens MD Primary Care Provider [phone] Surgical History Surgery Date Site/Laterality Comments OTHER SURGICAL HISTORY PROCEDURE: DENIES PREVIOUS SURGERY HERNIA REPAIR 2016 PROCEDURE: HISTORICAL HERNIA REPAIR/UMB OTHER SURGICAL HISTORY 12/30/2021 PROCEDURE: [place] ARTHRD ANT INTERBODY MIN DSC CRV BELOW C2; COMMENT: C5-6,6-7 ACDF, Dr. Montez Medical History Medical History Date Comments Hypertriglyceridemia 08/05/2014 DX:Hypertri glyceridemia Family History Medical History Relation Name Comments Hypertension Father [place] 50s Diabetes Mother Heart attack Other 1 cousin age 50 Relation Name Status Comments Father Alive mi age 50's Mother Alive Other 1 Other 2 Social History Tobacco Use Types Packs/Day Years Used Date Smoking Tobacco: Every Day Cigarettes 1 38.1 Started: 1987 Smokeless Tobacco: Never Alcohol Use [...] Health Maintenance Due Date Last Done Comments Colorectal Cancer Screening: Colonoscopy 1971 Hepatitis A Vaccines (1 of 2 - Risk 2-dose series) 1990 Hepatitis B Vaccines (1 of 3 - 19+ 3-dose series) 1990 Pneumococcal Vaccine: 50+ Ye ars (1 of 2 - PCV) 1990 DTaP,Tdap,and Td Vaccines (2 - Td or Tdap) 11/16/2020 11/16/2010 RSV Immunization Adult Patie nts (1 - Risk 50-74 years 1-dose series) 2021 Zoster Vaccines (1 of 2) 2021 Cholesterol Screening (Lipid Panel) 05/28/2022 HIV Screening 05/28/2022 Hepatitis C Screening [...] on patient's age to complete this topic Insurance [address] [place] [address] [facility] [id number] [place] [id number] Care Teams Architectural Project Manager Relationship Specialty Start Date End Date Rachel Stephens MD [address] [facility] [address] [place], [place] PCP - General Internal Medicine 09/05/21
[2025-04-21 08:14] LABS: Alanine Aminotransferase 36 U/L (0-40); Albumin Level 4.4 g/dL (3.5-5.0); Alkaline Phosphatase 53 U/L (39-117); Anion Gap 9 (12-20); Aspartate Amino Transferase 34 U/L (5-37); Blood Urea Nitrogen 19 mg/dL (9-16); Calcium 9.0 mg/dL (8.4-10.2); Carbon Dioxide 27 mmol/L (22-29); Chloride 109 mmol/L (96-108); Cholesterol 193 mg/dL (<200); Estimated Glomerular Filt Rate > 60; HDL Cholesterol 36 mg/dL (>40); Potassium 4.4 mmol/L (3.3-5.1); Sodium 141 mmol/L (135-145); Total Protein 7.2 g/dL (6.5-8.0); Triglycerides 266 mg/dL (<150)
== END 2025-04-21 06:32 | disposition home or self-care (01) ==
LOC: HO.LAB 06:31
PROVIDERS: PCP Internal Medicine; Visit Provider Internal Medicine
DX: E78.2 Mixed hyperlipidemia (principal); N50.811 Right testicular pain; F17.211 Nicotine dependence, cigarettes, in remission; Z68.29 Body mass index [BMI] 29.0-29.9, adult; Z12.5 Encounter for screening for malignant neoplasm of prostate
CPT/HCPCS: 36415; 80053; 80061; 84153

== ENCOUNTER 2025-05-12 10:11 | Outpatient (AMB) | payer BC, SELFPAY ==
--- NOTE | 2025-05-12 10:18 | MHC.OFFVIS ---
Vital Signs 05/12/25 10:21 Height 6 ft Weight 224 lb BMI 30.4 Intake Visit Reasons: OV-Follow up : RT knee 01/09/25 Intake Note: Abhi is a 54 year old man who presents with complaints of mild discomfort in his right knee after undergoing revision right knee arthroscopic surgery on 01/09/2025. Patient reports he has done about 5 visits so far with physical therapy. He reports this is improving the swelling in his right knee and has improved the pain he gets in the middle of the night. He states that he no longer has the sharp pain that he was experiencing prior to his surgery. Allergies oxycodone (From Percocet) Adverse Reaction (Unknown, Verified 05/12/25 10:22) nausea, dizziness Medication List - Last Reconciled 05/12/25 by Homero Moy MD doxepin 25 mg PO BEDTIME ibuprofen 600 mg PO Q8H PRN losartan 50 mg PO DAILY rosuvastatin 20 mg PO BEDTIME PFSH Medical History (Updated 03/12/25 @ 13:25 by Homero oMy MD) Depression Personal history of nicotine dependence Osteoarthritis Cervical disc disease Hypertriglyceridemia Surgical History (Updated 05/12/25 @ 10:23 by ABDIFATAH De Leon) S/P left knee arthroscopy History of colonoscopy History of arthroscopy of right knee (~2022) History of umbilical hernia repair (~2015) History of fusion of cervical spine (~2021) Family History Father No problems noted. Mother No problems noted. Social History Household Members: None Housing: Apartment Are you a primary child care supervisor to a significant other at home: No Do you presently have visiting nurse or other home services: No Patient Tobacco Use Status: Former Tobacco user Tobacco use type: Cigarette Years Smoked: (onset 17yo, 1/2-3/4ppd x 35yrs, 20pyh - quit 07/2022) Physical Exam Vital Signs: BMI result Body Mass Index 30.4 Extrem Other: Right knee examination shows that the surgical incisions are well healed, no erythema, minimal crepitus with range of motion, minimal discomfort with range of motion, no instability Assessment & Plan Assessment & Plan (1) Right knee pain: Code(s): M25.561 - Pain in right knee Category: Medical Plan Mr. Dickinson continues to improve after undergoing right knee revision arthroscopic surgery on 01/09/2025. He will continue going to formal physical therapy for now. He will gradually transition to a home exercise program. At this point the patient's symptoms are tolerable to him. We will hold off on an injection. He will contact me prior to his follow-up appointment in 3 months should any questions or concerns arise. Feel free to call me at any time should questions regarding his orthopedic management arise. I spent 22 minutes in reviewing the patient's records and imaging studies, seeing the patient and documenting in the medical record. Coding Level of Care Code Est Pt Level 3 (84609) Complex EM visit Add On G2211 Diagnoses Right knee pain M25.561
[2025-05-12 10:21] VITALS: BMI 30.4
== END 2025-05-12 10:48 | disposition home or self-care (01) ==
LOC: HO.HOS 10:11
PROVIDERS: PCP Internal Medicine; Visit Provider Orthopaedic Surgery
DX: M25.561 Pain in right knee (principal)
CPT/HCPCS: 99213